=== PATIENT | male | born 1950 | race Caucasian/White ===

== ENCOUNTER → 2017-01-18 | Outpatient (CLI) | payer OTHER ==
[~2017-01-18] VITALS: Ht 198.1 cm; Wt 124.5 kg
[~2017-01-18] MED LIST: ACET-24 PO; ASPEC325 PO; ASPI81TA21 PO; ATOR-24 PO; CARV25TA PO; CRG25 PO; GABA1CAP PO; HYDR25TA4 PO; LEVO200T6 PO; LISI-725 PO; LISI20TA3 PO; MELO7.5T5 PO; MISC1TAB PO; POTA10TA PO; RXC5 PO; [UNRECOGNIZED DRUG - CODE] PO
[2017-01-18 12:32] VITALS: BP_SYST 148; BP_SYST 162; BP_DIAS 87; BP_DIAS 88; PULSE 33; PULSE 34; PULSE 43; Ht 198.1 cm; Wt 124.5 kg
== END | disposition home or self-care (01) ==
LOC: C.NEUR 11:55
PROVIDERS: ATTEND Internal Medicine Pulmonary Disease
DX: G47.33 Obstructive sleep apnea (adult) (pediatric) (principal); I44.0 Atrioventricular block, first degree; I49.3 Ventricular premature depolarization

== ENCOUNTER → 2017-02-01 | Outpatient (CLI) | payer OTHER ==
[2017-02-01 12:49] LABS: BASO % 0.2 %; BASO ABS # 0.02 K/uL (0-0.2); COMPLETE YES; EOS % 0.9 %; HEMATOCRIT 47.3 % (42-52); IG% 0.1 %; LYMPH % 24.8 %; LYMPH ABS # 2.31 K/uL (1.2-3.4); MEAN CORPUSCULAR HEMOGLOBIN 32.3 pg (25-34); MEAN CORPUSCULAR HGB CONC 35.5 g/dl (32-36); MEAN PLATELET VOLUME 10.5 fL (7.4-10.4); MONO % 8.8 %; NEUT % 65.2 %; PLATELET COUNT 117 K/uL (130-400)
[2017-02-01 14:58] LABS: ALT/SGPT 36 U/L (12-78); AST/SGOT 22 U/L (15-37); BLOOD UREA NITROGEN 22 mg/dl (7-18); BUN/CREATININE RATIO 15.6 (10-20); CALCIUM 8.7 mg/dl (8.5-10.1); CARBON DIOXIDE 31 mmol/L (21-32); CHLORIDE 104 mmol/L (98-107); GLUCOSE 82 mg/dl (70-99); MAGNESIUM 2.2 mg/dl (1.8-2.4); POTASSIUM 3.8 mmol/L (3.5-5.1); SODIUM 142 mmol/L (136-145)
[2017-02-01 15:03] LABS: ALB/GLOB RATIO 1.5 (0.9-2); ALKALINE PHOSPHATASE 79 U/L (45-117); CHOLESTEROL 82 mg/dl (0-200); CHOLESTEROL/HDL RATIO 2.9; HDL CHOLESTEROL 28 mg/dl; TRIGLYCERIDES 163 mg/dl (0-150); VERY LOW DENSITY LIPOPROT CALC 33 mg/dl
== END | disposition home or self-care (01) ==
LOC: C.LABSPEC 12:25
PROVIDERS: ATTEND Internal Medicine
DX: E78.5 Hyperlipidemia, unspecified (principal); I10 Essential (primary) hypertension; I47.0 Re-entry ventricular arrhythmia

== ENCOUNTER → 2017-03-21 | Outpatient (CLI) | payer OTHER ==
[~2017-03-21] MED LIST changes: -ACET-24 PO; -ASPEC325 PO; -CARV25TA PO; -HYDR25TA4 PO; -LEVO200T6 PO; -MELO7.5T5 PO; -MISC1TAB PO; -POTA10TA PO; -RXC5 PO
--- NOTE | 2017-03-21 14:35 | Discharge Instructions ---
Discharge Instructions Procedure Procedure Date: Mar 21, 2017. Reason for visit: L Hip Djd. Discharge Discharge Date: Mar 21, 2017. Discharge Diagnosis: Left hip pain. Status post left hip steroid injection. Instructions Activity Recommendations: No limitations Return to School/Work: no limitations Recommended Home Diet: No Limitations Allergies Coded Allergies: Morphine (Verified Adverse Reaction, Unknown, RASH, PER PT, CAN TOLERATE VICODIN, 10/25/11) info from 's H&P [facility] Recommendations: Call your doctor if: * Temperature above 101 degrees * Pain not relieved by pain medicine ordered * There is increased drainage or redness from any incision * You have any unanswered questions or concerns. Your Doctors Instructions noted above were prepared by provider Baron Mejia. Patient Signature Section: Patient Instructions Signature Page Rico [place] Patient (or Guardian) Signature/Date: I have read and understand the instructions given to me by my caregivers. Caregiver/RN/Doctor Signature/Date: The above-named patient and/or guardian has received patient instructions on this date. + Original Patient Signature Page (only) stays with chart. Please make copy for patient.
--- NOTE | 2017-03-21 14:52 | DIAGNOSTIC IMAGING REPORT ---
FLUOROSCOPIC GUIDED LEFT HIP STEROID INJECTION FLUOROSCOPY TIME: 19 seconds HISTORY: Left hip pain.. PROCEDURE: After obtaining written informed consent, the patient was placed supine on the fluoroscopy table. A suitable site for needle insertion was marked using fluoroscopic guidance. The left hip was prepped and draped in the usual sterile fashion. 1% lidocaine was used for skin, subcutaneous and deep soft tissue anesthesia. Under intermittent fluoroscopic guidance, a 22 gauge x 3.5 inch spinal needle was inserted into the left hip joint. 2 cc of Optiray 300 was injected to confirm the intra-articular location. This is followed by a mixture of 4cc of 0.5% bupivacaine and 2 cc of betamethasone at the request of the referring physician. The needle was then removed. There were no apparent complications. IMPRESSION: Fluoroscopic-guided left hip steroid injection without immediate complication. Electronically signed by: Rangel Mejia 03/21/2017 2:51 PM Dictated Date/Time: 03/21/2017 2:49 PM
== END | disposition home or self-care (01) ==
LOC: C.RADBC 12:45
PROVIDERS: ATTEND Orthopaedic Surgery
DX: M16.12 Unilateral primary osteoarthritis, left hip (principal)

== ENCOUNTER → 2017-03-29 | Outpatient (CLI) | payer OTHER ==
[2017-03-29 13:09] LABS: THYROID STIMULATING HORMONE 0.271 uIu/ml (0.300-4.500)
== END | disposition home or self-care (01) ==
LOC: C.LAB 11:31
PROVIDERS: ATTEND Internal Medicine Endocrinology, Diabetes & Metabolism
DX: E89.0 Postprocedural hypothyroidism (principal)

== ENCOUNTER 2017-11-14 18:10 | Observation (INO) | payer OTHER ==
[~2017-11-14] VITALS: Ht 198.1 cm; Wt 126.6 kg
[~2017-11-14 18:10] MED LIST changes: +ACET-24 PO; +ASPEC325 PO; -ASPI81TA21 PO; +CARV25TA PO; -CRG25 PO; +GABA100C13 PO; -GABA1CAP PO; +HYDR25TA4 PO; +LEVO200T6 PO; -LISI-725 PO; +MELO7.5T5 PO; +MISC1TAB PO; +POTA10TA PO; +RXC5 PO; -[UNRECOGNIZED DRUG - CODE] PO
[2017-11-14] MEDS ORDERED: ASPIRIN 81 MG CHEW PO STA (18:29)
[2017-11-14 18:46] LABS: BASO % 0.3 %; BASO ABS # 0.02 K/uL (0-0.2); EOS % 1.1 %; EOS ABS # 0.07 K/uL (0-0.5); HEMATOCRIT 45.4 % (42-52); HEMOGLOBIN 16.7 g/dL (14.0-18.0); IG# 0.01 K/uL (0.00-0.02); LYMPH % 30.4 %; MEAN CELL VOLUME 88.3 fL (80-100); MEAN CORPUSCULAR HEMOGLOBIN 32.5 pg (25-34); MEAN CORPUSCULAR HGB CONC 36.8 g/dl (32-36); MONO % 11.9 %; MONO ABS # 0.78 K/uL (0.11-0.59); NEUT % 56.1 %; PLATELET COUNT 110 K/uL (130-400); RED CELL DISTRIBUTION WIDTH CV 12.8 % (11.5-14.5); WHITE BLOOD COUNT 6.58 K/uL (4.8-10.8)
--- NOTE | 2017-11-14 18:46 | DIAGNOSTIC IMAGING REPORT ---
CHEST ONE VIEW PORTABLE CLINICAL HISTORY: Chest Pain dyspnea COMPARISON STUDY: 06/28/2017 FINDINGS: Moderate cardiomegaly. Diaphragms are smooth. Lungs are considered clear. IMPRESSION: Moderate cardiomegaly. Otherwise negative study. The above report was generated using voice recognition software. It may contain grammatical, syntax or spelling errors. Electronically signed by: Venu Amor M.D. 11/14/2017 6:45 PM Dictated Date/Time: 11/14/2017 6:44 PM
[2017-11-14] MEDS: NITROGLYCERIN 0.4 MG SL PER TAB CHARGE SL PRN ×3 (18:47→19:30)
[2017-11-14 19:06] LABS: BLOOD UREA NITROGEN 30 mg/dl (7-18); CREATININE 1.43 mg/dl (0.60-1.40); GLUCOSE 88 mg/dl (70-99)
[2017-11-14 19:07] LABS: CALCIUM 8.9 mg/dl (8.5-10.1); CARBON DIOXIDE 28 mmol/L (21-32); POTASSIUM 3.4 mmol/L (3.5-5.1); SODIUM 139 mmol/L (136-145)
[2017-11-14] MEDS ORDERED: ASPI81TA28 PO (19:07)
[2017-11-14 19:11] LABS: CKMB 7.2 ng/ml (0.5-3.6)
[2017-11-14] MEDS ORDERED: CHOL1000 PO (19:13)
--- NOTE | 2017-11-14 20:42 | DIAGNOSTIC IMAGING REPORT ---
HEAD WITHOUT CONTRAST (CT) CT DOSE: 729.78 mGycm HISTORY: Hypertension headache TECHNIQUE: Multiaxial CT images of the head were performed without the use of intravenous contrast. A dose lowering technique was utilized adhering to the principles of ALARA. Comparison: 11/04/2011 Findings: The paranasal sinuses and mastoid air cells are clear. The calvarium and skull base are intact. The ventricles and sulci are within normal limits. There is no mass, hematoma, midline shift, or acute infarct. Impression: No acute intracranial abnormality. The above report was generated using voice recognition software. It may contain grammatical, syntax or spelling errors. Electronically signed by: Venu Amor M.D. 11/14/2017 8:40 PM Dictated Date/Time: 11/14/2017 8:39 PM
[2017-11-14] MEDS ORDERED: CARVEDILOL 25 MG TAB PO STA (21:41)
[2017-11-14] MEDS ORDERED: ALUMINUM/MAGNESIUM/SIMETH (MAALOX MAX) 30 ML UDC PO PRN (21:45)
[2017-11-14] MEDS ORDERED: NITROGLYCERIN 0.4 MG SL PER TAB CHARGE SL PRN (21:45)
[2017-11-14] MEDS ORDERED: ONDANSETRON INJ 2 MG/ML 2 ML VIAL IV PRN (21:45)
[2017-11-14] MEDS ORDERED: ACETAMINOPHEN 325 MG TAB PO PRN (21:45)
[2017-11-14] MEDS ORDERED: POTASSIUM CHLORIDE 10 MEQ TABCR PO STA (21:49)
[2017-11-14] MEDS ORDERED: HydrALAZINE HCL 20 MG/ML VIAL IV. PRN (22:30)
--- NOTE | 2017-11-14 22:33 | History and Physical ---
History & Physical Date & Time of Service: Nov 14, 2017 at 22:02 Chief Complaint: Chest Pain,Elevated Bp Primary Care Physician: Jose Palacios M.D. History of Present Illness Source: patient, hospital records Patient is a 67 year old male with a past medical history of HTN, Hip replacement surgery, Thyroid cancer, and hyperlipidemia that presents with chest pain. At 4pm the patient began to have left sided chest pressure that came on suddenly while he was at home resting and did not radiate, did not change with movement or breathing, not worse with ambulation, and did not change in character, and denies any . At 6pm he called EMT friends who told the patient to come to the emergency department. The patient states he has been having frequent PACs for which he follows with Dr Avelar and has a second opinion at [facility] who felt he is not a candidate for an ablation at this time. He is scheduled to have an ECHO and Holter monitor later this month. Patient was given nitro paste on admission which made his chest pain resolve. At this time denies any chest pain, shortness of breath, palpitations, back pain, abdominal pain, fever, or chills. Family History No pertinent family history Social History Smoking Status: Never Smoker Smokeless Tobacco Use: No Alcohol Use: none Drug Use: none Marital Status: Housing status: lives with family Immunizations History of Influenza Vaccine: No Influenza Vaccine Date: Jul 25, 2012 History of Tetanus Vaccine?: Yes History of Pneumococcal: No History of Hepatitis B Vaccine: No Allergies Coded Allergies: Morphine (Verified Allergy, Unknown, RASH, PER PT, CAN TOLERATE VICODIN, 07/19/17) info from 's H&P Home Medications Scheduled Aspirin (Aspirin Ec), 81 MG PO DAILY Atorvastatin (Lipitor), 40 MG PO HS Carvedilol (Coreg), 25 MG PO BID Cholecalciferol (Vitamin D3), Unknown Dose PO DAILY Gabapentin (Neurontin), 200 MG PO TID Hydrochlorothiazide (Hctz), 25 MG PO QAM Levothyroxine Sodium (Levothyroxine Sodium), 1 TAB PO 5XWK Lisinopril (Prinivil), 20 MG PO DAILY Misc Natural Products (Flex-A-Min Double Strengt), 2 TAB PO QAM Potassium Chloride (K-Tabs), 10 MEQ PO UD Review of Systems Constitutional: No fever, No chills, No weight loss, No fatigue Respiratory: No cough, No sputum, No wheezing, No shortness of breath Cardiovascular: No chest pain, No edema, No palpitations Abdomen: No pain, No nausea, No vomiting, No diarrhea, No constipation Physical Exam Vital Signs Date Time Temp Pulse Resp B/P (MAP) Pulse Ox O2 Delivery O2 Flow Rate FiO2 11/14/17 20:04 143/103 11/14/17 20:00 62 20 11/14/17 19:33 114/90 11/14/17 19:30 86 21 94 Room Air 11/14/17 19:03 153/75 11/14/17 19:00 64 20 11/14/17 18:47 96 Room Air 11/14/17 18:42 60 11/14/17 18:16 36.7 57 16 186/128 96 Room Air General Appearance: WD/WN, no apparent distress Head: normocephalic, atraumatic Eyes: normal inspection, sclerae normal Neck: supple, no carotid bruits Respiratory/Chest: chest non-tender, lungs clear, normal breath sounds Cardiovascular: regular rate, rhythm, no edema, no murmur Abdomen/GI: normal bowel sounds, non tender, soft Extremities/Musculoskelatal: normal inspection, no calf tenderness, no pedal edema Neurologic/Psych: alert, normal mood/affect, oriented x 3 Diagnostics Laboratory Results Results Past 24 Hours Test 11/14/17 18:35 11/14/17 21:46 Range/Units White Blood Count 6.58 4.8-10.8 K/uL Red Blood Count 5.14 4.7-6.1 M/uL Hemoglobin 16.7 14.0-18.0 g/dL Hematocrit 45.4 42-52 % Mean Corpuscular Volume 88.3 80-100 fL Mean Corpuscular Hemoglobin 32.5 25-34 pg Mean Corpuscular Hemoglobin Concent 36.8 32-36 g/dl Platelet Count 110 130-400 K/uL Mean Platelet Volume 10.0 7.4-10.4 fL Neutrophils (%) (Auto) 56.1 % Lymphocytes (%) (Auto) 30.4 % Monocytes (%) (Auto) 11.9 % Eosinophils (%) (Auto) 1.1 % Basophils (%) (Auto) 0.3 % Neutrophils # (Auto) 3.70 1.4-6.5 K/uL Lymphocytes # (Auto) 2.00 1.2-3.4 K/uL Monocytes # (Auto) 0.78 0.11-0.59 K/uL Eosinophils # (Auto) 0.07 0-0.5 K/uL Basophils # (Auto) 0.02 0-0.2 K/uL RDW Standard Deviation 41.0 36.4-46.3 fL RDW Coefficient of Variation 12.8 11.5-14.5 % Immature Granulocyte % (Auto) 0.2 % Immature Granulocyte # (Auto) 0.01 0.00-0.02 K/uL Sodium Level 139 136-145 mmol/L Potassium Level 3.4 3.5-5.1 mmol/L Chloride Level 103 98-107 mmol/L Carbon Dioxide Level 28 21-32 mmol/L Anion Gap 7.0 3-11 mmol/L Blood Urea Nitrogen 30 7-18 mg/dl Creatinine 1.43 0.60-1.40 mg/dl Est Creatinine Clear Calc Drug Dose 72.3 ml/min Estimated GFR () 58.7 Estimated GFR (Non- 50.7 BUN/Creatinine Ratio 21.1 10-20 Random Glucose 88 70-99 mg/dl Calcium Level 8.9 8.5-10.1 mg/dl Total Bilirubin 0.8 0.2-1 mg/dl Direct Bilirubin 0.2 0-0.2 mg/dl Aspartate Amino Transf (AST/SGOT) 25 15-37 U/L Alanine Aminotransferase (ALT/SGPT) 35 12-78 U/L Alkaline Phosphatase 80 45-117 U/L Total Creatine Kinase 399 39-308 U/L Creatine Kinase MB 7.2 0.5-3.6 ng/ml Creatine Kinase MB Ratio 1.8 0-3.0 Troponin I < 0.015 0-0.045 ng/ml Total Protein 7.0 6.4-8.2 gm/dl Albumin 4.0 3.4-5.0 gm/dl Lipase 246 73-393 U/L Impression Assessment and Plan Patient is a 67 year old male with a past medical history of HTN, CALLI, CKD, Hip replacement surgery, Thyroid cancer, and hyperlipidemia that presents with chest pain Chest Pain - EKG: Bigeminy, No ST changes - Troponin < 0.015 --> Repeat q6h x 3 - Nitro Paste --> SL NTG for CP ordered - Morning Echo ordered - Aspirin - Obs Telemetry Hypertension - Continue home Carvedilol, HCTZ, Lisinopril - Hydralazine 10mg IV PRN for SBP > 180 CKD Stage 3 with acute dehydration - Cr 1.43 / BUN 30 - NS @ 125 mls/hr - Daily BMP Hypokalemia - K+ of 3.4 - 40 mEq PO K, 20 mEq IV K - Evening Mag - Daily BMP HLD - Continue home Lipitor Chronic Pain - Continue home Gabapentin Hypothyroidism - Continue home Synthroid Arthritis - Discontinue home Meloxicam due to elevated Cr along with CKD CALLI - Home CPAP DVT - SCDs Code Status - Full Resuscitation Attending addendum: I have physically seen this patient, have supervised the medical residents activities, and agree with the H&P unless as otherwise noted. Assessment and Plan: Precordial chest pain-- The patient will be admitted to telemetry for serial cardiac enzymes, serial EKG's, cardiac rhythm monitoring and a 2-D echocardiogram with Dopplers. Aspirin 81 mg daily Nitropaste 1 inch to the anterior chest wall every 6 hours Hypertension/chronic kidney disease/hypokalemia-- Continue carvedilol and lisinopril Hold HCTZ for now, but resume upon discharge. Give potassium chloride 40 mEq orally Advised him to to discuss with Dr. Encarnacion before he resumes meloxicam prescribed by orthopedics. Advanced Directives Existing Advance Directive: No Existing Living Will: No Existing Power of Float Operator: No Resuscitation Status VTE Prophylaxis Will order VTE Prophylaxis: Yes Resident Tracking Resident Involvement: Resident Care Provided Care Provided: Adult Hospital Medicine
[2017-11-14 23:00] VITALS: BP 172/112; PULSE 85; TEMP 36.6; O2SAT 94; O2SAT 96; Ht 198.1 cm; Wt 126.6 kg
[2017-11-14] MEDS ORDERED: IV FLUIDS COMPLETED PRN (23:00)
--- NOTE | 2017-11-14 23:18 | EMERGENCY ROOM VISIT NOTE ---
History Report prepared by Homa: Jr Tong Under the Supervision of: Pro KrugerO. First contact with patient: 18:18 Chief Complaint: CHEST PAIN Stated Complaint: CHEST PAIN,ELEVATED BP History of Present Illness The patient is a 67 year old male with a history of PVC's who presents to the Emergency Room with complaints of persistent left-sided chest tightness that started around 2 and a half hours ago. He states that he has not felt right all day, almost as if he was having an "anxiety attack". The patient says that his tightness is a 2 out of 10 in severity. He notes that his blood pressure has been high today, and says that he does take blood pressure medication. He says that he has a mild headache, and adds that he has been burping a lot today. The patient denies any shortness of breath, palpitations, runny nose, notable cough , abdominal pain, jaw pain, or arm pain. He notes that he is scheduled to have an echo on December 02 due to the PVC's. The patient says that he took 1, 80 mg Aspirin this morning. He notes that he had a heart catheterization in 2011 which was fine. The patient is not on a blood thinner. No true exacerbating or remitting factors. Source of History: patient, spouse/significant other Onset: 2 and a half hours ago Position: chest (left) Symptom Intensity: 2/10 Quality: other (tightness) Timing: other (persistent) Associated Symptoms: + headache (mild), No cough (or runny nose), No SOB, No abdominal pain Note: Burping a lot. High blood pressure. Denies palpitations, jaw pain, arm pain. Review of Systems See HPI for pertinent positives & negatives. A total of 10 systems reviewed and were otherwise negative. Past Medical & Surgical Medical Problems: (1) Chest pain (2) HTN (hypertension) (3) Left Hip DJD Family History No pertinent family history Social History Smoking Status: Never Smoker Marital Status: Housing Status: lives with family Occupation Status: retired Current/Historical Medications Scheduled Aspirin (Aspirin Ec), 81 MG PO DAILY Atorvastatin (Lipitor), 40 MG PO HS Carvedilol (Coreg), 25 MG PO BID Cholecalciferol (Vitamin D3), Unknown Dose PO DAILY Gabapentin (Neurontin), 200 MG PO TID Hydrochlorothiazide (Hctz), 25 MG PO QAM Levothyroxine Sodium (Levothyroxine Sodium), 1 TAB PO 5XWK Lisinopril (Prinivil), 20 MG PO DAILY Meloxicam (Mobic), 7.5 MG PO QAM Misc Natural Products (Flex-A-Min Double Strengt), 2 TAB PO QAM Potassium Chloride (K-Tabs), 10 MEQ PO BID Allergies Coded Allergies: Morphine (Verified Allergy, Unknown, RASH, PER PT, CAN TOLERATE VICODIN, 07/19/17) info from 's H&P Physical Exam Vital Signs Date Time Temp Pulse Resp B/P (MAP) Pulse Ox O2 Delivery O2 Flow Rate FiO2 11/14/17 21:39 82 21 11/14/17 21:33 184/135 11/14/17 21:09 88 14 11/14/17 21:03 178/87 11/14/17 20:57 161/84 11/14/17 20:09 62 21 11/14/17 20:04 143/103 11/14/17 20:00 62 20 11/14/17 19:33 114/90 11/14/17 19:30 86 21 94 Room Air 11/14/17 19:03 153/75 11/14/17 19:00 64 20 11/14/17 18:47 96 Room Air 11/14/17 18:42 60 11/14/17 18:16 36.7 57 16 186/128 96 Room Air Physical Exam GENERAL: Sitting up in bed, disheveled, nontoxic. EYE EXAM: normal conjunctiva. OROPHARYNX: no exudate, no erythema, lips, buccal mucosa, and tongue normal and mucous membranes are moist NECK: supple, no nuchal rigidity, no adenopathy, non-tender LUNGS: Clear to auscultation. Normal chest wall mechanics HEART: no murmurs, S1 normal and S2 normal ABDOMEN: abdomen soft, non-tender, normo-active bowel sounds, no masses, no rebound or guarding. BACK: Back is symmetrical on inspection and there is no deformity, no midline tenderness, no CVA tenderness. SKIN: no rashes and no bruising UPPER EXTREMITIES: upper extremities are grossly normal. LOWER EXTREMITIES: Calves equal bilateral. NEURO EXAM: Normal sensorium, cranial nerves II-XII grossly intact, normal speech, no gross weakness of arms, no gross weakness of legs. Medical Decision & Procedures ER Provider Diagnostic Interpretation: Radiology results as stated below per my review and the radiologist's interpretation: CHEST ONE VIEW PORTABLE CLINICAL HISTORY: Chest Pain dyspnea COMPARISON STUDY: 06/28/2017 FINDINGS: Moderate cardiomegaly. Diaphragms are smooth. Lungs are considered clear. IMPRESSION: Moderate cardiomegaly. Otherwise negative study. The above report was generated using voice recognition software. It may contain grammatical, syntax or spelling errors. Electronically signed by: Venu Amor M.D. 11/14/2017 6:45 PM Dictated Date/Time: 11/14/2017 6:44 PM HEAD WITHOUT CONTRAST (CT) CT DOSE: 729.78 mGycm HISTORY: Hypertension headache TECHNIQUE: Multiaxial CT images of the head were performed without the use of intravenous contrast. A dose lowering technique was utilized adhering to the principles of ALARA. Comparison: 11/04/2011 Findings: The paranasal sinuses and mastoid air cells are clear. The calvarium and skull base are intact. The ventricles and sulci are within normal limits. There is no mass, hematoma, midline shift, or acute infarct. Impression: No acute intracranial abnormality. The above report was generated using voice recognition software. It may contain grammatical, syntax or spelling errors. Electronically signed by: Venu Amor M.D. 11/14/2017 8:40 PM Dictated Date/Time: 11/14/2017 8:39 PM Laboratory Results 11/14/17 18:35 Red Blood Count 5.14, Mean Corpuscular Volume 88.3, Mean Corpuscular Hemoglobin 32.5, Mean Corpuscular Hemoglobin Concent 36.8, Mean Platelet Volume 10.0, Neutrophils (%) (Auto) 56.1, Lymphocytes (%) (Auto) 30.4, Monocytes (%) (Auto) 11.9, Eosinophils (%) (Auto) 1.1, Basophils (%) (Auto) 0.3, Neutrophils # (Auto ) 3.70, Lymphocytes # (Auto) 2.00, Monocytes # (Auto) 0.78, Eosinophils # (Auto ) 0.07, Basophils # (Auto) 0.02 11/14/17 18:35 Test 11/14/17 18:35 White Blood Count 6.58 K/uL (4.8-10.8) Red Blood Count 5.14 M/uL (4.7-6.1) Hemoglobin 16.7 g/dL (14.0-18.0) Hematocrit 45.4 % (42-52) Mean Corpuscular Volume 88.3 fL (80-100) Mean Corpuscular Hemoglobin 32.5 pg (25-34) Mean Corpuscular Hemoglobin Concent 36.8 g/dl (32-36) Platelet Count 110 K/uL (130-400) Mean Platelet Volume 10.0 fL (7.4-10.4) Neutrophils (%) (Auto) 56.1 % Lymphocytes (%) (Auto) 30.4 % Monocytes (%) (Auto) 11.9 % Eosinophils (%) (Auto) 1.1 % Basophils (%) (Auto) 0.3 % Neutrophils # (Auto) 3.70 K/uL (1.4-6.5) Lymphocytes # (Auto) 2.00 K/uL (1.2-3.4) Monocytes # (Auto) 0.78 K/uL (0.11-0.59) Eosinophils # (Auto) 0.07 K/uL (0-0.5) Basophils # (Auto) 0.02 K/uL (0-0.2) RDW Standard Deviation 41.0 fL (36.4-46.3) RDW Coefficient of Variation 12.8 % (11.5-14.5) Immature Granulocyte % (Auto) 0.2 % Immature Granulocyte # (Auto) 0.01 K/uL (0.00-0.02) Anion Gap 7.0 mmol/L (3-11) Est Creatinine Clear Calc Drug Dose 72.3 ml/min Estimated GFR () 58.7 Estimated GFR (Non- 50.7 BUN/Creatinine Ratio 21.1 (10-20) Calcium Level 8.9 mg/dl (8.5-10.1) Magnesium Level 2.1 mg/dl (1.8-2.4) Total Bilirubin 0.8 mg/dl (0.2-1) Direct Bilirubin 0.2 mg/dl (0-0.2) Aspartate Amino Transf (AST/SGOT) 25 U/L (15-37) Alanine Aminotransferase (ALT/SGPT) 35 U/L (12-78) Alkaline Phosphatase 80 U/L (45-117) Total Creatine Kinase 399 U/L (39-308) Creatine Kinase MB 7.2 ng/ml (0.5-3.6) Creatine Kinase MB Ratio 1.8 (0-3.0) Troponin I < 0.015 ng/ml (0-0.045) Total Protein 7.0 gm/dl (6.4-8.2) Albumin 4.0 gm/dl (3.4-5.0) Lipase 246 U/L (73-393) Laboratory results per my review. Medications Administered Medications (Trade) Dose Ordered Sig/Luis Fernando Route Start Time Stop Time Status Last Admin Dose Admin Nitroglycerin (Nitrostat Tab) 0.4 mg Q5M PRN SL 11/14/17 18:30 11/14/17 22:53 DC 11/14/17 19:30 0.4 MG Aspirin (Aspirin Chew) 324 mg NOW STAT PO 11/14/17 18:29 11/14/17 18:31 DC 11/14/17 18:46 324 MG Carvedilol (Coreg Tab) 25 mg NOW STAT PO 11/14/17 21:41 11/14/17 21:42 DC 11/14/17 22:13 25 MG ECG Per My Interpretation Indication: chest pain Rate (beats per minute): 78 Rhythm: sinus rhythm Findings: PVC (multiple), left axis deviation Change: Repeat ECG: Sinus rhythm rate of 83 bpm, first degree AV block, PVC's present, left axis deviation. ED Course ED COURSE: Vital signs were reviewed and showed hypertensive situational vitals. The patients medical record was reviewed The above diagnostic studies were performed and reviewed. ED treatments and interventions as stated above. 0: The patient was evaluated in room B4B. A complete history and physical examination was performed. 1828: Ordered Aspirin Chew 324 mg PO. 1829: Ordered Nitrostat Tab 0.4 mg SL PRN. 2049: Upon reevaluation, the patient is completely asymptomatic.I discussed my findings with the patient and he understands and agrees with the treatment plan. Based on the patients age, coexisting illnesses, exam and lab findings the decision to treat as an inpatient was made. The patient remained stable while under my care. The patient will be evaluated for further management. 2100: I reviewed the patient's case with Dr. Mary Beth RAGLAND staff interpreter. He will evaluate the patient for further management. Medical Decision Differential diagnoses includes but is not limited to acute coronary syndrome, myocardial infarction, pericarditis, pulmonary embolus, aortic dissection, pneumonia, pneumothorax, musculoskeletal, shingles, esophageal. Patient is a 67-year-old male that presents to ER not feeling right in combination with a chest feeling tight. Upon presentation he was found to be very hypertensive. Previous cath in 2011 was negative. Patient does have a history of hypertension and hyperlipidemia. CBC and BMP was unremarkable. LFTs and bilirubin were normal. CK was slightly elevated. Lipase is normal. CT head was performed as he did have a headache as well was unremarkable. Chest x-ray unremarkable. EKG shows no acute findings. There is chest pain completely resolved with nitroglycerin. He was also given aspirin as he only took 1 baby aspirin at home. With his hypertension, age, risk factors and chest pain relieved with nitro felt was reasonable to observe him overnight. Medication Reconcilliation Current Medication List: was personally reviewed by me Blood Pressure Screening Patient's blood pressure: Elevated blood pressure Blood pressure disposition: Elevated BP felt to be situational Consults Time Called: 2054 Consulting Physician: Dr. Mary Beth RAGLAND staff interpreter Returned Call: [phone] I reviewed the patient's case with Dr. Mary Beth RAGLAND staff interpreter. He will evaluate the patient for further management. Impression Primary Impression: Precordial chest pain Additional Impression: HTN (hypertension) Scribe Attestation The scribe's documentation has been prepared under my direction and personally reviewed by me in its entirety. I confirm that the note above accurately reflects all work, treatment, procedures, and medical decision making performed by me. Departure Information Dispostion Being Evaluated By Hospitalist Referrals Jose Palacios M.D. (PCP) Patient Instructions My [facility] Problem Qualifiers Additional Impression: HTN (hypertension) Hypertension type: unspecified Qualified Codes: I10 - Essential (primary) hypertension
[2017-11-14] MEDS: SODIUM CHLORIDE 0.9% 1000ML 1,000 ML IV SCH (23:39)
[2017-11-14] MEDS: POTASSIUM CHLR 10 MEQ / WTR 10 MEQ in PREMIXED WATER 100 ML IV SCH (23:40)
[2017-11-15] MEDS: POTASSIUM CHLR 10 MEQ / WTR 10 MEQ in PREMIXED WATER 100 ML IV SCH (00:56)
[2017-11-15 01:00] VITALS: BP 132/85; PULSE 56
[2017-11-15 04:00] VITALS: BP 156/97; PULSE 75; TEMP 36.4; O2SAT 96
[2017-11-15] MEDS ORDERED: LEVOTHYROXINE 200 MCG TAB PO SCH (06:30)
[2017-11-15 07:42] LABS: CALCIUM 8.1 mg/dl (8.5-10.1); CREATININE 1.27 mg/dl (0.60-1.40); POTASSIUM 3.4 mmol/L (3.5-5.1)
[2017-11-15] MEDS: SODIUM CHLORIDE 0.9% 1000ML 1,000 ML IV SCH (07:54)
[2017-11-15 07:55] VITALS: BP 139/88; PULSE 57; TEMP 36.6; O2SAT 91
[2017-11-15] MEDS: GABAPENTIN 100 MG CAP PO SCH ×2 (07:55→14:03)
[2017-11-15] MEDS ORDERED: CARVEDILOL 25 MG TAB PO SCH (09:00)
[2017-11-15] MEDS ORDERED: HYDROCHLOROTHIAZIDE 25 MG TAB PO SCH (09:00)
[2017-11-15] MEDS ORDERED: LISINOPRIL 20 MG TAB PO SCH (09:00)
[2017-11-15] MEDS ORDERED: MELOXICAM 7.5 MG TAB PO SCH (09:00)
[2017-11-15] MEDS ORDERED: ASPIRIN 81 MG ECTAB PO SCH (09:00)
--- NOTE | 2017-11-15 09:54 | Cardiology Consultation ---
Cardiology Consultation Date of Consultation: Nov 15, 2017. Requesting Physician: Dr. Cervantes Reason for Consultation: CP Pt evaluation today including: conversation w/ patient, physical exam, lab review, review of studies, review of inpatient medication list, conversation w/ attending History of Present Illness This is a very pleasant 67-year-old gentleman who has a history of hypertension and known nonobstructive coronary artery disease (he had a catheterization in May 2011 when he developed nonsustained ventricular tachycardia during exercise, this demonstrated noncritical coronary artery disease however and included a 30% mid LAD stenosis). He has had long-standing premature ventricular beats, however is asymptomatic. On detailed questioning he does not have any symptoms of lightheadedness, dizziness or palpitations, he has been told that his heart rate is slow at times and irregular but has never been aware of any exercise limitation and is never had presyncope or syncope. He did exercise regularly including riding a bike with no difficulty, however more recently his activity has been limited due to his hip replacement. He does not have heart failure symptoms. Evaluation included a stress echo which was done on 04/15/2015, he exercised for 9 minutes achieving 72% of his predicted maximal heart rate (he was taking beta-blockade). The echocardiogram was negative for ischemia at 72%. He had no ventricular tachycardia identified during exercise. His baseline left ventricular function was normal. We scheduled a 24-hour Holter monitor to make sure that he did not have heart block or runs of ventricular tachycardia, this showed 30% premature ventricular beats including 1000 ventricular pairs and one 3 beat run of ventricular tachycardia. He was already taking 25 mg twice a day of carvedilol. Since he was asymptomatic and had no change in left ventricular function we elected to follow him on his current medical regimen. Holter monitoring done on May 18, 2017 showed sinus bradycardia predominantly with a maximum heart rate of 94 bpm, first-degree AV block but no significant bradycardia or high degree of AV block. He had frequent premature ventricular beats which comprised 26% of the recording, including 4 beats of nonsustained ventricular tachycardia. He was evaluated at [facility] for possible ablation, that evaluation is still underway with a plan (according to the patient) of watching his left ventricular function and his ectopy to see if ablation is necessary. He describes feeling poorly yesterday afternoon, it was somewhat nonspecific although part of it was a mild chest discomfort as well as a feeling in his head that bothered him. He noted that his blood pressure was quite elevated, he went to the fire house to get his blood pressure checked and they suggested he come to the emergency room which he did. During this time he had this mild left-sided chest discomfort which he believes was then relieved by 2 nitroglycerin. He thinks the duration of the discomfort was something like 2 hours. He was not short of breath, and he has not had palpitations (but he does not feel his palpitations). Since admission to the hospital he has had no further discomfort. He notes his blood pressure has been somewhat elevated recently, his lisinopril was decreased following hip surgery because his pressure was low after surgery. Past Medical/Surgical History (1) HTN (hypertension) (2) Left Hip DJD Frequent premature ventricular beats Coronary artery disease Family History No pertinent family history Social History Smoking Status: Never Smoker History of Alcohol Use: No Review of Systems Constitutional: No fever, No weight loss, No weakness Respiratory: No cough, No wheezing, No shortness of breath, No dyspnea on exertion Cardiac: + see HPI, + chest pain, No orthopnea, No PND, No edema, No palpitations Abdomen: No pain, No nausea, No vomiting, No diarrhea, No GI bleeding Male : No urinary frequency, No nocturia more than once/night, No slowing stream, No sexual dysfunction Neurologic: No paralysis, No weakness, No numbness/tingling, No balance problems Heme: No abnormal bleeding/bruising, No clotting problems Endo: No fatigue Skin: No problem reported All Other Systems: Reviewed and Negative Allergies Coded Allergies: Morphine (Verified Allergy, Unknown, RASH, PER PT, CAN TOLERATE VICODIN, 07/19/17) info from 's H&P Medications Current Inpatient Medications Medications (Trade) Dose Ordered Sig/Luis Fernando Route Start Time Stop Time Status Last Admin Dose Admin Acetaminophen (Tylenol Tab) 650 mg Q4H PRN PO 11/14/17 21:45 12/14/17 21:44 Al Hydrox/Mg Hydrox/Simethicone (Maalox Max Susp) 15 ml Q4H PRN PO 11/14/17 21:45 12/14/17 21:44 Ondansetron HCl (Zofran Inj) 4 mg Q6H PRN IV 11/14/17 21:45 12/14/17 21:44 Nitroglycerin (Nitrostat Tab) 0.4 mg UD PRN SL 11/14/17 21:45 12/14/17 21:44 Aspirin (Ecotrin Tab) 81 mg DAILY PO 11/15/17 09:00 12/15/17 08:59 11/15/17 07:55 81 MG Atorvastatin Calcium (Lipitor Tab) 40 mg HS PO 11/15/17 21:00 12/15/17 20:59 11/15/17 07:56 40 MG Carvedilol (Coreg Tab) 25 mg BID PO 11/15/17 09:00 12/15/17 08:59 11/15/17 07:55 25 MG Gabapentin (Neurontin Cap) 200 mg TID PO 11/15/17 09:00 12/15/17 08:59 11/15/17 07:55 200 MG Hydrochlorothiazide (Hydrochlorothiazide Tab) 25 mg QAM PO 11/15/17 09:00 12/15/17 08:59 11/15/17 07:54 25 MG Levothyroxine Sodium (Synthroid Tab) 200 mcg DAILYBB PO 11/15/17 06:30 12/15/17 06:59 11/15/17 05:40 200 MCG Lisinopril (Zestril Tab) 20 mg DAILY PO 11/15/17 09:00 12/15/17 08:59 11/15/17 07:55 20 MG Hydralazine HCl (HydrALAZINE INJ) 10 mg Q4H PRN IV. 11/14/17 22:30 12/14/17 22:29 11/14/17 23:40 10 MG Sodium Chloride 1,000 ml @ 125 mls/hr Q8H IV 11/14/17 22:30 12/14/17 22:29 11/15/17 07:54 125 MLS/HR Miscellaneous (Iv Fluids Completed) 1 ea PRN PRN N/A 11/14/17 23:00 11/14/18 22:59 Potassium Chloride (Klor-Con Tab) 20 meq NOW PO 11/15/17 09:30 12/15/17 09:29 UNV Physical Exam Vital Signs Past 12 Hours Date Time Temp Pulse Resp B/P (MAP) Pulse Ox O2 Delivery O2 Flow Rate FiO2 11/15/17 08:00 Room Air 11/15/17 07:55 36.6 57 16 139/88 (105) 91 Room Air 11/15/17 04:00 Room Air CPAP 11/15/17 04:00 36.4 75 16 156/97 (116) 96 CPAP 11/15/17 01:00 56 132/85 (101) 11/15/17 00:00 Room Air CPAP 11/14/17 23:00 94 Room Air 11/14/17 23:00 36.6 85 20 172/112 96 Room Air 11/14/17 23:00 36.6 85 20 172/112 (132) 94 Room Air 11/14/17 22:02 154/82 97 Room Air Constitutional: General Apperance: heathly-appearing Level of Distress: NAD Psychiatric: Mental Status: active & alert Head: normocephalic Eyes: EOM: EOMI ENMT: normal ENT inspection, hearing grossly normal Neck: supple, no masses Lungs: Respiratory effort: no dyspnea, good air movement Auscultation: breath sounds normal, no wheezing Cardiovascular: Heart Auscultation: RRR, no murmurs, no rubs, no gallops, bradycardia, pertinent finding (With frequent premature beats) Peripheral Pulses: Bruits: none appreciated Abdomen: Bowel Sounds: normal Inspection & Palpation: soft, no tenderness, guarding & rebound, no masses Musculoskeletal: normal strength (5/5 throughout) Extremities: no edema Neurologic: Cranial Nerves: grossly intact Sensation: grossly intact Data Laboratory Results: Last 24 Hours Test 11/14/17 18:35 11/15/17 00:19 11/15/17 06:36 White Blood Count 6.58 K/uL Red Blood Count 5.14 M/uL Hemoglobin 16.7 g/dL Hematocrit 45.4 % Mean Corpuscular Volume 88.3 fL Mean Corpuscular Hemoglobin 32.5 pg Mean Corpuscular Hemoglobin Concent 36.8 g/dl Platelet Count 110 K/uL Mean Platelet Volume 10.0 fL Neutrophils (%) (Auto) 56.1 % Lymphocytes (%) (Auto) 30.4 % Monocytes (%) (Auto) 11.9 % Eosinophils (%) (Auto) 1.1 % Basophils (%) (Auto) 0.3 % Neutrophils # (Auto) 3.70 K/uL Lymphocytes # (Auto) 2.00 K/uL Monocytes # (Auto) 0.78 K/uL Eosinophils # (Auto) 0.07 K/uL Basophils # (Auto) 0.02 K/uL RDW Standard Deviation 41.0 fL RDW Coefficient of Variation 12.8 % Immature Granulocyte % (Auto) 0.2 % Immature Granulocyte # (Auto) 0.01 K/uL Sodium Level 139 mmol/L 139 mmol/L Potassium Level 3.4 mmol/L 3.4 mmol/L Chloride Level 103 mmol/L 104 mmol/L Carbon Dioxide Level 28 mmol/L 29 mmol/L Anion Gap 7.0 mmol/L 6.0 mmol/L Blood Urea Nitrogen 30 mg/dl 23 mg/dl Creatinine 1.43 mg/dl 1.27 mg/dl Est Creatinine Clear Calc Drug Dose 72.3 ml/min 85.4 ml/min Estimated GFR () 58.7 67.8 Estimated GFR (Non- 50.7 58.5 BUN/Creatinine Ratio 21.1 18.4 Random Glucose 88 mg/dl 84 mg/dl Calcium Level 8.9 mg/dl 8.1 mg/dl Magnesium Level 2.1 mg/dl Total Bilirubin 0.8 mg/dl Direct Bilirubin 0.2 mg/dl Aspartate Amino Transf (AST/SGOT) 25 U/L Alanine Aminotransferase (ALT/SGPT) 35 U/L Alkaline Phosphatase 80 U/L Total Creatine Kinase 399 U/L Creatine Kinase MB 7.2 ng/ml Creatine Kinase MB Ratio 1.8 Troponin I < 0.015 ng/ml < 0.015 ng/ml < 0.015 ng/ml Total Protein 7.0 gm/dl Albumin 4.0 gm/dl Lipase 246 U/L Hepatitis C Antibody Screen NEG Hepatitis C Antibody NEG Imaging: No acute findings EKG: Sinus bradycardia with frequent premature ventricular beats, no acute changes Telemetry reviewed: Sinus rhythm and sinus bradycardia, frequent premature ventricular beats with some ventricular bigeminy Assessment & Plan 1. Chest discomfort: Although his cardiac enzymes have been negative and his electrocardiogram does not show changes his discomfort is little bit worrisome in view of his known nonobstructive coronary disease at catheterization in 2010. He has not had exertional symptoms so this may not be cardiac at all, however it was relieved with nitroglycerin. I think we should perform stress testing. We can arrange that for today. 2. Frequent premature ventricular beats: He has had evaluation at [facility] for possible ablation, however he was to be reevaluated with repeat Holter monitoring and echocardiography to see whether the rhythm continues and whether his left ventricular function has worsened. An echocardiogram was done today, he continues to have frequent beats although we cannot quantify them very well on telemetry monitoring. That would require a Holter monitor. For now would keep him on telemetry and maintain his current dose of beta blockade. 3. Coronary disease: He had coronary disease identified at catheterization 2010 , it was nonobstructive and I am not sure he has symptoms related to it. Onset now of chest discomfort is worrisome however, this may not be cardiac but it certainly could be. Enzymes have been negative and there are no electrocardiographic changes. 4. Hypertension: He has significant hypertension at times and his blood pressure is quite labile, although not low during his hospitalization. I do not see a particular pattern. As long as his blood pressures not significantly elevated today I would like to perform the stress test. We will probably have to adjust his blood pressure medications to control his blood pressure. Thank you for allowing me to participate in his care.
[2017-11-15] MEDS ORDERED: POTASSIUM CHLORIDE 20 MEQ TABCR PO ONE (10:00)
[2017-11-15 12:23] VITALS: BP 143/84; PULSE 59; O2SAT 93
--- NOTE | 2017-11-15 13:53 | Discharge Instructions ---
Discharge Instructions Date of Service Nov 15, 2017. Admission Reason for Admission: Chest Pain Discharge Discharge Diagnosis / Problem: Chest Pain Discharge Goals Goal(s): Decrease discomfort, Improve function, Increase independence, Improve disease control Activity Recommendations Activity Limitations: resume your previous activity Lifting Limitations: gradually increase as tolerated Exercise/Sports Limitations: none May Resume Sexual Activity: when tolerated Shower/Bathe: no limitations Driving or Machine Use: no limitations . Instructions / Follow-Up Instructions / Follow-Up You were admitted to [facility] with chest pain and diagnosed with noncardiac chest pain. Your chest pain may have due to indigestion and anxiety. During your stay here you were treated with supportive care, nitroglycerine paste, and were evaluated by cardiology.. Imaging studies which were completed include Echocardiogram which was normal. You also underwent a stress treadmill test without abnormalities. Your blood pressure trended downward during your admission here without needs for adjustment in medications. Medications: Continue taking your medications as prescribed. Your potassium supplement has been increased, continue this as directed: 20 meq in the morning, and 10 meq in the evening. Appointments: Follow up with PCP within 1 week. Follow up with cardiology within 1-2 weeks. Current Hospital Diet Patient's current hospital diet: AHA Diet (Heart Healthy), Renal Diet Discharge Diet Recommended Diet: AHA Diet (Heart Healthy), Renal Diet Pending Studies Studies pending at discharge: no Medical Emergencies . Who to Call and When: Medical Emergencies: If at any time you feel your situation is an emergency, please call 911 immediately. . Non-Emergent Contact Non-Emergency issues call your: Primary Care Provider, Fast Food Sales Assistant Call Non-Emergent contact if: you have a fever, your pain is not controlled, your pain is worsening, your pain is unusual for you, your pain is concerning you, you have any medication questions other concerns with your health. Call 911 or go directly to the Emergency Department if you experience any of the following: Chest pain, chest tightness, shortness of breath, abdominal pain , lightheadedness, dizziness, gastrointestinal bleeding, or have any other concerns regarding your health. . Past History Medical & Surgical History: (1) Hx of supraventricular tachycardia (2) CAD (coronary artery disease) (3) S/P cardiac cath (4) CALLI (obstructive sleep apnea) (5) HLD (hyperlipidemia) (6) Thyroid cancer (7) Chest pain (8) Left Hip DJD (9) HTN (hypertension) . "Provider Documentation" section prepared by Sarah Cervantes. . [facility] Monitoring Program Search Results: no issues identified
[2017-11-15] MEDS ORDERED: POTA10TA PO (13:54)
[2017-11-15 14:06] VITALS: BP 143/84; PULSE 59; TEMP 36.6; O2SAT 93
--- NOTE | 2017-11-15 14:31 | EXERCISE STRESS ECHO ---
*NOTICE TO RECEIVING CONSTITUTION PARTY AGENCY This information is strictly Confidential and protected under [place] law. [place] law prohibits you from making any further disclosure of this information unless further disclosure is expressly permitted by the written consent of the person to whom it pertains or is authorized by law. A general authorization for the release of medical or other information is not sufficient for this purpose. Hospital accepts no responsibility if the information is made available to any other person, INCLUDING THE PATIENT. Interpretation Summary * Name: CLARITA LLAMAS Study Date: 11/15/2017 10:44 AM BP: 141/94 mmHg * Patient Location: [facility]\S\N286\S\1 HR: 60 * : 1950 (M/d/yyyy) Gender: Male Height: 78 in * Age: 67 yrs Ethnicity: CA Weight: 279 lb * Ordering Physician: Sandra Cervantes * Referring Physician: Self, Referred * Performed By: Jacqueline Thomas RCS * * Reason For Study: CHEST PAIN * BSA: 2.6 m2 * -- Conclusions -- * 1. Normal stress echocardiogram at 8.1 METs and a peak heart rate of 64% predicted maximum. * 2. No exercise-induced chest pain. * 3. No EKG changes. * 4. Baseline echocardiogram notes normal left ventricular systolic function. Procedure Details * ECHOEX, CPT #04010 Left Ventricle * Resting wall motion: Normal. Stress wall motion: Appropriate increase in Left ventricular systolic function and decrease in cavity size. No stress induced segmental wall motion abnormalities. Stress Parameters * Normal baseline electrocardiogram. * Stress ECG: No ST changes. No arrhythmias. * The stress portion of this study was personally supervised by the undersigned interpreting physician. * Rest heart rate was '60' BPM. * Rest blood pressure was '141/94' * Maximum heart rate achieved was 99 bpm. * Maximum heart rate was 64 % of maximum age-predicted heart rate. * Maximum blood pressure was '141/94' * Total exercise time was '06:46' * Maximum exercise MET level achieved was '8.10' METS * Maximum treadmill speed was '3.40' miles per hour. * Maximum treadmill elevation was '14.00'% grade.
--- NOTE | 2017-11-15 16:20 | Discharge Summary ---
Discharge Summary Date of Service Nov 15, 2017. Discharge Summary Admission Date: Nov 14, 2017 at 21:46 Discharge Date: Nov 15, 2017 Discharge Disposition: Home Principal Diagnosis: Non cardiac Chest pain Problems/Secondary Diagnoses: Medical Problems: (1) CAD (coronary artery disease) (2) Chest pain (3) HLD (hyperlipidemia) (4) HTN (hypertension) (5) Hx of supraventricular tachycardia (6) Left Hip DJD (7) CALLI (obstructive sleep apnea) (8) Thyroid cancer Surgical Problems: (1) S/P cardiac cath Immunizations: Have You Had Influenza Vaccine: No Influenza Vaccine Date: Jul 25, 2012 History of Tetanus Vaccine?: Yes History of Pneumococcal: No History of Hepatitis B Vaccine: No Procedures: Echocardiogram, stress treadmill 11/15/17 * -- Conclusions -- * 1. Normal stress echocardiogram at 8.1 METs and a peak heart rate of 64% predicted maximum. * 2. No exercise-induced chest pain. * 3. No EKG changes. * 4. Baseline echocardiogram notes normal left ventricular systolic function. Consultations: Cardiology Medication Reconciliation Changed Medications: Potassium Chloride (K-Tabs) 10 Meq Tab 10 MEQ PO UD for 30 Days, #90 DOSE (Changed from: BID) Take 20 meq in the morning, and 10 merq in the evening. Continued Medications: Aspirin (Aspirin Ec) 81 Mg Tab 81 MG PO DAILY Atorvastatin (Lipitor) 40 Mg Tab 40 MG PO HS, 0 Refills Carvedilol (Coreg) 25 Mg Tab 25 MG PO BID, TAB Cholecalciferol (Vitamin D3) Unknown Strength Tab Unknown Dose PO DAILY Gabapentin (Neurontin) 100 Mg Cap 200 MG PO TID, CAP Hydrochlorothiazide (Hctz) 25 Mg Tab 25 MG PO QAM, TAB Levothyroxine Sodium (Levothyroxine Sodium) 200 Mcg Tab 1 TAB PO 5XWK, TAB 3 Refills TAKE TUESDAY THRU TUESDAY. Lisinopril (Prinivil) 20 Mg Tab 20 MG PO DAILY, TAB Misc Natural Products (Flex-A-Min Double Strengt) 1 Tab Tab 2 TAB PO QAM Discontinued Medications: Meloxicam (Mobic) 7.5 Mg Tab 7.5 MG PO QAM, TAB Discharge Exam The patient was seen and examined this morning. Pt reports doing well currently. He denies any substernal chest pain or pressure since last evening. Patient notes that one nitroglycerin tablet relieved chest pressure. He denies any lightheadedness or dizziness associated with this. He participates in exercise regularly including riding a bike with no difficulty, however more recently his activity has been limited due to his hip replacement in Jul 2017. He report hx of gaining 15 pounds in the past year. No alcohol use, no current tobacco use. Patient underwent echocardiogram this morning and a stress echo after 3 negative troponins which was also found to be normal. ROS: Constitutional: No fever, sweats or chills Eyes: No diplopia, no worsening or blurred vision ENT: normal hearing, no trouble swallowing Respiratory: No cough, sputum, dyspnea at rest or on exertion Cardiovascular: No chest pain, tightness or palpitations Abdomen: No pain, nausea, vomiting, diarrhea or constipation Musculoskeletal: No joint pain, calf pain, swelling Neurologic: No weakness, numbness/tingling, or balance problems Psychiatric: No anxiety or depression Skin: No rash or itch PE: General: awake, alert, no apparent distress, obese Head: Normocephalic, atraumatic ENT: PERRL, EOMI, no pharyngeal exudate, mucous membranes moist Chest: Clear to auscultation, on room air, no adventitious breath sounds, on room air Cardiac: Bradycardia, frequent PVCs, no murmur, no JVD, normal peripheral pulses , good capillary refill Abdominal: NABS x 4 quadrants, soft, nontender to palpation, no rebound, guarding or tenderness Extremities: Normal inspection, no peripheral edema or erythema, calfs nontender to palpation Psych: Normal mood and affect Neuro: AAO x 3, speech is clear, no peripheral sensory deficits Hospital Course Patient is a 67 year old male with a past medical history of HTN, CALLI, CKD, Hip replacement surgery, Thyroid cancer, and hyperlipidemia that presents with chest pain Chest Pain Frequent PVCs - EKG: Bigeminy, No ST changes -Nitropaste resolved patient's chest pressure -Cardiology consulted -Cardiac biomarkers were trended 3 and were negative. The patient underwent stress treadmill echocardiogram and was found to be normal. -2D echo completed - Aspirin daily - Pt has been to [facility] for possible ablation, however he was to be reevaluated with repeat Holter monitoring and echocardiography to see whether the rhythm continues and whether his left ventricular function has worsened. Pt has been given records to take with him if he chooses to seek second opinion at [place] CAD - S/p hx of cardiac cath in 2011- 30 % stenosis to the LAD- nonobstructive, no stent placed. - Enzymes have been negative and there are no EKG changes. Hypertension - Continue home Carvedilol, HCTZ, Lisinopril - Hydralazine 10mg IV PRN for SBP > 180 -administered once the ER. Patient blood pressure has improved this morning down into the 130s-140s systolically. This may be slightly elevated due to anxiety component as well. CKD Stage 3 with acute dehydration - Cr 1.27 - improved to baseline - NS @ 125 mls/hr during stay here. Hypokalemia - K+ of 3.4 - replaced during hospital stay. Home medications were increased to 20 mEq in the morning, 10 mEq at night - Daily BMP HLD - Continue home Lipitor Chronic Pain - Continue home Gabapentin Hypothyroidism - Continue home Synthroid Arthritis - Discontinue home Meloxicam due to elevated Cr along with CKD CALLI - Home CPAP DVT- SCDs Code Status - Full Resuscitation Disposition: Patient from home, discharged home today. Total Time Spent: Greater than 30 minutes This includes examination of the patient, discharge planning, medication reconciliation, and communication with other providers. Discharge Instructions Please refer to the electronic Patient Visit Report (Discharge Instructions) for additional information. Follow-Up Follow up with PCP within 1 week. Follow up with cardiology within 1-2 weeks. Additional Copies To Jose Palacios M.D. Reviewed: Pt Seen/Exam by Me History Pt is doing well. No further chest pain. No SOB. Tolerating PO without issue. Agree with HPI/ROS as noted by PA General Appearance: WD/WN, no apparent distress Eye Exam: bilateral eye normal inspection, bilateral eye other (sclera WNL) Respiratory: normal breath sounds, no respiratory distress Cardiovascular: normal peripheral pulses, regular rate, rhythm Gastrointestinal: non tender, soft Extremities: non-tender, no pedal edema Neurologic/Psychiatric: alert, normal mood/affect, oriented x 3 Skin Characteristics: normal color, warm/dry Assessment/Plan Agree with plan as outlined above Chest pain: trops neg Stress test neg Continue outpt workup HypoK: advised to start 20meq in AM with 10meq in PM (increased from 10meq BID) D/c mobic if hip pain is no longer an issue s/p OR intervention
[2017-11-15] MEDS ORDERED: ATORVASTATIN 40 MG TAB PO SCH (21:00)
== END 2017-11-15 14:40 | disposition home or self-care (01) ==
LOC: C.EDB 18:12 → C.MED 21:46 → ENRESERV 22:00
PROVIDERS: ADMIT Student in an Organized Health Care Education/Training Program; ATTEND Family Medicine
DX: R07.89 Other chest pain (principal); I25.10 Atherosclerotic heart disease of native coronary artery without angina pectoris; E78.5 Hyperlipidemia, unspecified; I12.9 Hypertensive chronic kidney disease with stage 1 through stage 4 chronic kidney disease, or unspecified chronic kidney disease; N18.3 Chronic kidney disease, stage 3 (moderate); E87.6 Hypokalemia; E86.0 Dehydration; G47.33 Obstructive sleep apnea (adult) (pediatric); M16.12 Unilateral primary osteoarthritis, left hip; Z85.850 Personal history of malignant neoplasm of thyroid; Z79.82 Long term (current) use of aspirin; Z88.5 Allergy status to narcotic agent

== ENCOUNTER → 2017-12-20 | Outpatient (CLI) | payer OTHER ==
[~2017-12-20] MED LIST changes: -ACET-24 PO; -ASPEC325 PO; +ASPI81TA28 PO; +CHOL1000 PO; -MELO7.5T5 PO; -RXC5 PO
[2017-12-20 14:40] LABS: BLOOD UREA NITROGEN 24 mg/dl (7-18); CALCIUM 8.9 mg/dl (8.5-10.1); CARBON DIOXIDE 30 mmol/L (21-32); CHOLESTEROL 85 mg/dl (0-200); GLUCOSE 90 mg/dl (70-99); POTASSIUM 3.4 mmol/L (3.5-5.1); SODIUM 137 mmol/L (136-145)
[2017-12-20 14:51] LABS: LDL CHOLESTEROL (DIRECT) 55 mg/dl
== END | disposition home or self-care (01) ==
LOC: C.LABSPEC 12:34
PROVIDERS: ATTEND Internal Medicine
DX: Z00.00 Encounter for general adult medical examination without abnormal findings (principal); E78.5 Hyperlipidemia, unspecified; I10 Essential (primary) hypertension; E03.9 Hypothyroidism, unspecified

== ENCOUNTER → 2018-01-31 | Outpatient (CLI) | payer OTHER ==
[~2018-01-31] VITALS: Ht 198.1 cm; Wt 124.8 kg
[2018-01-31 16:03] VITALS: BP 128/85; PULSE 67; Ht 198.1 cm; Wt 124.8 kg
== END | disposition home or self-care (01) ==
LOC: C.NEUR 15:35
PROVIDERS: ATTEND Internal Medicine Pulmonary Disease
DX: G47.33 Obstructive sleep apnea (adult) (pediatric) (principal); R53.83 Other fatigue

== ENCOUNTER 2020-04-26 17:20 | Inpatient (IN) ==
[2020-04-26] MEDS ORDERED: SODIUM CHLORIDE 0.9% 1000ML 1,000 ML IV SCH (17:45)
[2020-04-26] MEDS ORDERED: ACETAMINOPHEN 500 MG TAB PO STA (17:47)
--- NOTE | 2020-04-26 17:47 | Emergency Department Note ---
Impression & Plan Sepsis, Acute dehydration, LA (acute kidney injury), Hypocalcemia ED Provider Note NAME: CLARITA LLAMAS AGE: 70 SEX: M : 1950 ARRIVES VIA: Walk-In INFORMANT: Patient, ED PROVIDER(S): Krunal Oshea MD Chief Complaint: Not feeling well, weakness HPI: Patient states that his symptom began yesterday morning. The patient is stated he felt somewhat weak and fatigued. The patient went to the [facility] to swim but was not able to complete his exercise regimen because of his feelings of fatigue. Patient denies any shortness of breath or chest pains. The patient has had some associated feelings of fever and warmth but denies chills, chest pains, shortness of breath, nausea, or vomiting. Patient denies any rashes or tick bites. The patient states that he has had slight decreased p.o. intake over the last day. The patient states that his symptoms are gotten progressively worse and not better and has not tried anything at home to ameliorate his symptoms. Patient does state he has been able to take all of his current medications. Patient states that he was seen yesterday at Dr. Byron Rodriguez where he had a urinalysis that was completed which showed some hematuria but no infection. This apparently was pending a culture results. Patient denies any lower extremity swelling, symptoms, hematuria, and has had a recent bowel movement. ROS: See HPI for pertinent positives and negatives. A total of 10 systems were reviewed and otherwise negative. Past medical history: See below Surgical history: See below Social history: See below Physical Exam: GENERAL: Mildly ill in appearance, wearing a mask and glasses. EYE EXAM: Normal conjunctiva. PERRL, no anisocoria and EOM's grossly intact w/o pain. NECK: Supple, no nuchal rigidity, no adenopathy, non-tender. No signs of meningismus. LUNGS: Clear to auscultation. Normal chest wall mechanics. HEART: NSR, no MRG. ABDOMEN: Abdomen soft, non-tender, normo-active bowel sounds, no masses, no rebound or guarding. BACK: No CVA TTP. SKIN: No rashes and no bruising. UPPER EXTREMITIES: Upper extremities are grossly normal. LOWER EXTREMITIES: Grossly normal, no edema. NEURO EXAM: A&O x3, cranial nerves II-XII grossly intact, normal speech, moves all 4 extremities on command w/o issue. Differential diagnoses: Sepsis, UTI, pneumonia, metabolic, electrolyte abnormalities, cardiac sources, intracerebral event, toxicologic, neurologic, as well as other pathologies. Course: Patient was seen and evaluated the bedside. Full history physical exam was performed. EKG: Indication: Weakness Sinus rhythm first-degree block, rate of 73, borderline QRS, normal axis, no obvious ST changes Imaging Studies: Radiology results as stated below per my review in the radiologist's interpretation: XR chest 1V portable CLINICAL HISTORY: SEPSIS COMPARISON STUDY: 11/14/2017 FINDINGS: The heart is enlarged. There is no focal pulmonary consolidation. There is slight interstitial prominence similar to the prior study. There is no overt failure. There are no significant pleural effusions[ IMPRESSION: Persistent cardiomegaly. No evidence of focal pulmonary consolidation ACT 112: Negative or not required by law. Electronically signed by: Julián Awad M.D. 04/26/2020 6:45 PM Dictated: 04/26/201843 Transcribed: 04/26/201843 Cardiac monitoring: An order was placed for continuous cardiac monitoring. The monitor shows a rate of 96 with sinus rhythm. MDM: Patient did present with concern for fever and weakness. Blood work was obtained along with blood urine cultures and the patient was given IV fluids. I did review the patient's urine culture that was completed from yesterday. This was negative. Patient does have a negative COVID test. Patient has normal white count H&H. Mild thrombocytopenia noted. The patient does have mild LA given creatinine is 2.3. On reassessment the patient was feeling mildly improved and his hypotension also improved. Lactate 2.5 the patient did receive IV fluids. The patient was ordered an additional 500 IV fluid. Bilirubin is slightly elevated but the patient does not complain of any abdominal pain. No other abnormalities in the patient's LFTs. Procalcitonin is 0.99. Lyme's is negative. I did speak the on-call hospitalist agreed to further evaluate treat the patient. Patient was admitted to medicine service. Past Med/Surg History Medical History Actinic keratosis BCC (basal cell carcinoma), abdomen Dysplastic nevus Hx of papillary thyroid carcinoma Hx of supraventricular tachycardia Surgical History S/P cardiac cath S/P surgery on nasal septum S/P thyroid surgery Social History Smoking Status: Never smoker Feels Safe at Home: Yes Allergies Allergies Allergy/AdvReac Type Severity Reaction Status Date / Time morphine Allergy Unknown RASH, PER Verified 04/26/20 18:54 PT, CAN TOLERATE VICODIN Opioids - Morphine Analogues Allergy Verified 04/26/20 18:54 Home Meds Home Medications Medication Instructions Recorded Confirmed aspirin 81 mg tablet,delayed 81 mg PO DAILY 06/27/19 04/26/20 release gabapentin 100 mg tablet 200 mg PO TID tab 06/27/19 04/26/20 glucos sul [id number] 2 cap PO DAILY 06/27/19 04/26/20 lisinopril 20 mg tablet 20 mg PO BID tab 06/27/19 04/26/20 potassium chloride 10 mEq 20 meq PO BID cap 06/27/19 04/26/20 capsule,extended release acetaminophen [Tylenol Extra 500 mg PO Q6H PRN 04/26/20 04/26/20 Strength] Previous Rx's Medication Instructions Recorded hydrochlorothiazide 25 mg tablet 25 mg PO DAILY #90 tab 06/28/19 carvedilol 25 mg tablet 25 mg PO BID #180 tab 07/02/19 atorvastatin 40 mg tablet 40 mg PO QPM #90 tab 02/01/20 levothyroxine 137 mcg tablet 137 mcg PO DAILY #90 tab 04/07/20 Results & Data (ED) Vital Signs Vital Signs - 24 hr 04/26/20 17:25 04/26/20 18:14 04/26/20 18:18 Temperature 37.8 C H Temperature Source Oral Pulse Rate 96 H Pulse Rate [Left Finger] 73 Pulse Rate from SpO2 Sensor Respiratory Rate 20 18 18 Respiratory Effort / Characteristics Non-Labored Respiratory Depth Normal Blood Pressure 82/54 L Blood Pressure [Left Arm] 99/64 L Blood Pressure Mean 63 Blood Pressure Mean [Left Arm] 75 Pulse Oximetry 92 92 91 Oxygen Delivery Method Room Air Room Air Nasal Cannula Sepsis Recent Fever Within 48 Hours No Sepsis New/Unexplained Change in Mental Status No Sepsis Action Taken by Nursing No Action Required Oxygen Flow Rate - Titration 2 Pulse Oximetry Post Tiitration 93 08/15/20 18:40 04/26/20 18:50 04/26/20 19:00 Temperature Temperature Source Pulse Rate 90 88 88 Pulse Rate [Left Finger] Pulse Rate from SpO2 Sensor 80 88 88 Respiratory Rate 18 Respiratory Effort / Characteristics Respiratory Depth Blood Pressure 107/73 Blood Pressure [Left Arm] Blood Pressure Mean 83 Blood Pressure Mean [Left Arm] Pulse Oximetry 94 94 94 Oxygen Delivery Method Sepsis Recent Fever Within 48 Hours Sepsis New/Unexplained Change in Mental Status Sepsis Action Taken by Nursing Oxygen Flow Rate - Titration Pulse Oximetry Post Tiitration 04/26/20 19:01 Temperature Temperature Source Pulse Rate 88 Pulse Rate [Left Finger] Pulse Rate from SpO2 Sensor 88 Respiratory Rate 20 Respiratory Effort / Characteristics Respiratory Depth Blood Pressure Blood Pressure [Left Arm] Blood Pressure Mean Blood Pressure Mean [Left Arm] Pulse Oximetry 94 Oxygen Delivery Method Sepsis Recent Fever Within 48 Hours Sepsis New/Unexplained Change in Mental Status Sepsis Action Taken by Nursing Oxygen Flow Rate - Titration Pulse Oximetry Post Tiitration Home Medications Current Medication List: was personally reviewed by me Laboratory Data Attestation: I reviewed the patient's lab results. Result diagrams: 04/26/20 18:06 04/26/20 18:06 Lab Results 04/26/20 04/26/20 04/26/20 Range/Units 18:05 18:05 18:06 WBC 5.70 (4.8-10.8) K/uL RBC 5.17 (4.7-6.1) M/uL Hgb 16.4 (14.0-18.0) g/dL Hct 46.4 (42-52) % MCV 89.7 (80-100) fL MCH 31.7 (25-34) pg MCHC 35.3 (32-36) g/dL RDW Std Deviation 44.0 (36.4-46.3) fL RDW Coeff of Myles 13.3 (11.5-14.5) % Plt Count 80 L (130-400) K/uL MPV 9.7 (7.4-10.4) fL Immature Gran % (Auto) 0.4 % Neut % (Auto) 79.6 % Lymph % (Auto) 13.0 % Stephenson % (Auto) 6.8 % Eos % (Auto) 0.0 % Baso % (Auto) 0.2 % Neut # (Auto) 4.54 (1.4-6.5) K/uL Lymph # (Auto) 0.74 L (1.2-3.4) K/uL Stephenson # (Auto) 0.39 (0.11-0.59) K/uL Eos # (Auto) 0.00 (0-0.5) K/uL Baso # (Auto) 0.01 (0-0.2) K/uL Immature Gran # (Auto) 0.02 (0.00-0.02) K/uL Platelet Estimate Decreased L (Normal) PT (9.0-12.0) Seconds INR (0.9-1.1) APTT (21.0-31.0) Seconds PTT Ratio Sodium (136-145) mmol/L Potassium (3.5-5.1) mmol/L Chloride (98-107) mmol/L Carbon Dioxide (21-32) mmol/L Anion Gap (3-11) BUN (7-18) mg/dl Creatinine (0.6-1.4) mg/dl Est Cr Clr Drug Dosing ml/min Est GFR ( Amer) Est GFR (Non-Af Amer) BUN/Creatinine Ratio (10-20) Glucose (70-99) mg/dl Lactate (0.4-2.0) mmol/L Calcium (8.5-10.1) mg/dl Magnesium (1.8-2.4) mg/dl Total Bilirubin (0.2-1) mg/dl AST (15-37) U/L ALT (12-78) U/L Alkaline Phosphatase (45-117) U/L Troponin I (0-0.045) ng/ml Total Protein (6.4-8.2) gm/dl Albumin (3.4-5.0) gm/dl Globulin (2.5-4.0) gm/dl Albumin/Globulin Ratio (0.9-2) Procalcitonin (0-0.5) ng/ml Lyme Disease IgG Ab (Negative) Lyme Disease IgM Ab (Negative) COVID-19 Eval Order Covid19 Done at [facility] COVID-19 PCR NEGATIVE (Negative) 04/26/20 04/26/20 04/26/20 Range/Units 18:06 18:06 18:06 WBC (4.8-10.8) K/uL RBC (4.7-6.1) M/uL Hgb (14.0-18.0) g/dL Hct (42-52) % MCV (80-100) fL MCH (25-34) pg MCHC (32-36) g/dL RDW Std Deviation (36.4-46.3) fL RDW Coeff of Myles (11.5-14.5) % Plt Count (130-400) K/uL MPV (7.4-10.4) fL Immature Gran % (Auto) % Neut % (Auto) % Lymph % (Auto) % Stephenson % (Auto) % Eos % (Auto) % Baso % (Auto) % Neut # (Auto) (1.4-6.5) K/uL Lymph # (Auto) (1.2-3.4) K/uL Stephenson # (Auto) (0.11-0.59) K/uL Eos # (Auto) (0-0.5) K/uL Baso # (Auto) (0-0.2) K/uL Immature Gran # (Auto) (0.00-0.02) K/uL Platelet Estimate (Normal) PT 12.0 (9.0-12.0) Seconds INR 1.1 (0.9-1.1) APTT 29.6 (21.0-31.0) Seconds PTT Ratio 1.1 Sodium 135 L (136-145) mmol/L Potassium 4.0 (3.5-5.1) mmol/L Chloride 102 (98-107) mmol/L Carbon Dioxide 25 (21-32) mmol/L Anion Gap 8.0 (3-11) BUN 26 H (7-18) mg/dl Creatinine 2.30 H (0.6-1.4) mg/dl Est Cr Clr Drug Dosing 44.0 ml/min Est GFR ( Amer) 32.4 Est GFR (Non-Af Amer) 27.9 BUN/Creatinine Ratio 11.3 (10-20) Glucose 134 H (70-99) mg/dl Lactate 2.5 H* (0.4-2.0) mmol/L Calcium 8.2 L (8.5-10.1) mg/dl Magnesium 2.2 (1.8-2.4) mg/dl Total Bilirubin 1.2 H (0.2-1) mg/dl AST 25 (15-37) U/L ALT 30 (12-78) U/L Alkaline Phosphatase 68 (45-117) U/L Troponin I < 0.015 (0-0.045) ng/ml Total Protein 7.0 (6.4-8.2) gm/dl Albumin 3.5 (3.4-5.0) gm/dl Globulin 3.5 (2.5-4.0) gm/dl Albumin/Globulin Ratio 1.0 (0.9-2) Procalcitonin (0-0.5) ng/ml Lyme Disease IgG Ab (Negative) Lyme Disease IgM Ab (Negative) COVID-19 Eval Order COVID-19 PCR (Negative) 04/26/20 Range/Units 18:06 WBC (4.8-10.8) K/uL RBC (4.7-6.1) M/uL Hgb (14.0-18.0) g/dL Hct (42-52) % MCV (80-100) fL MCH (25-34) pg MCHC (32-36) g/dL RDW Std Deviation (36.4-46.3) fL RDW Coeff of Myles (11.5-14.5) % Plt Count (130-400) K/uL MPV (7.4-10.4) fL Immature Gran % (Auto) % Neut % (Auto) % Lymph % (Auto) % Stephenson % (Auto) % Eos % (Auto) % Baso % (Auto) % Neut # (Auto) (1.4-6.5) K/uL Lymph # (Auto) (1.2-3.4) K/uL Stephenson # (Auto) (0.11-0.59) K/uL Eos # (Auto) (0-0.5) K/uL Baso # (Auto) (0-0.2) K/uL Immature Gran # (Auto) (0.00-0.02) K/uL Platelet Estimate (Normal) PT (9.0-12.0) Seconds INR (0.9-1.1) APTT (21.0-31.0) Seconds PTT Ratio Sodium (136-145) mmol/L Potassium (3.5-5.1) mmol/L Chloride (98-107) mmol/L Carbon Dioxide (21-32) mmol/L Anion Gap (3-11) BUN (7-18) mg/dl Creatinine (0.6-1.4) mg/dl Est Cr Clr Drug Dosing ml/min Est GFR ( Amer) Est GFR (Non-Af Amer) BUN/Creatinine Ratio (10-20) Glucose (70-99) mg/dl Lactate (0.4-2.0) mmol/L Calcium (8.5-10.1) mg/dl Magnesium (1.8-2.4) mg/dl Total Bilirubin (0.2-1) mg/dl AST (15-37) U/L ALT (12-78) U/L Alkaline Phosphatase (45-117) U/L Troponin I (0-0.045) ng/ml Total Protein (6.4-8.2) gm/dl Albumin (3.4-5.0) gm/dl Globulin (2.5-4.0) gm/dl Albumin/Globulin Ratio (0.9-2) Procalcitonin 0.99 H (0-0.5) ng/ml Lyme Disease IgG Ab Negative (Negative) Lyme Disease IgM Ab Negative (Negative) COVID-19 Eval Order COVID-19 PCR (Negative) Administered Medications Discontinued Medications Acetaminophen (Acetaminophen 500 Mg Tab) 1,000 mg PO NOW STA Stop: 04/26/20 17:48 Last Admin: 04/26/20 18:10 Dose: 1,000 mg Documented by: [id number] Sodium Chloride (Nss 1000ml) 1,000 mls @ 999 mls/hr IV .[id number] GERI Stop: 04/26/20 18:40 Last Infusion: 04/26/20 19:13 Dose: 0 mls/hr Documented by: [id number] Admin: 04/26/20 18:11 Dose: 999 mls/hr Documented by: [id number] Sodium Chloride (Nss 1000ml) 500 mls @ 999 mls/hr IV .Q31M ONE Stop: 04/26/20 20:05 Last Admin: 04/26/20 19:47 Dose: 999 mls/hr Documented by: [id number] Discharge Plan Visit Data Chief Complaint: Illness Stated Complaint: MUSCLE ACHES, CHILLS, SWEATING, DIARRHEA ED Provider: Krunal Oshea Discharge Problem: Sepsis, Acute dehydration, LA (acute kidney injury), Hypocalcemia Forms Stand Alone Forms: [facility] Prescriptions Prescriptions: No Action aspirin [Adult Low Dose Aspirin] 81 mg tablet,delayed release (DR/EC) 81 mg PO DAILY RF: 0 gabapentin 100 mg tablet 200 mg PO TID RF: 0 glucos sul [id number] 2 cap PO DAILY RF: 0 lisinopril 20 mg tablet 20 mg PO BID RF: 0 potassium chloride 10 mEq capsule, extended release 20 meq PO BID RF: 0 hydrochlorothiazide 25 mg tablet 25 mg PO DAILY Qty: 90 RF: 3 carvedilol 25 mg tablet 25 mg PO BID Qty: 180 RF: 3 atorvastatin 40 mg tablet 40 mg PO QPM Qty: 90 RF: 3 levothyroxine 137 mcg tablet 137 mcg PO DAILY Qty: 90 RF: 3 acetaminophen [Tylenol Extra Strength] 500 mg Tablet 500 mg PO Q6H PRN (Reason: Fever Or Pain) RF: 0 Discharge Problem: Sepsis Qualifiers: Sepsis type: sepsis due to unspecified organism Sepsis acute organ dysfunction status: with acute organ dysfunction Severe sepsis acute organ dysfunction type: acute renal failure Acute renal failure type: unspecified Severe sepsis shock status: without septic shock Qualified Code(s): A41.9 - Sepsis, unspecified organism
[2020-04-26 18:37] LABS: INR 1.1 (0.9-1.1); Partial Thromboplastin Ratio 1.1; Partial Thromboplastin Time 29.6 Seconds (21.0-31.0)
[2020-04-26 18:39] LABS: Alanine Aminotransferase 30 U/L (12-78); Albumin Level 3.5 gm/dl (3.4-5.0); Aspartate Aminotransferase 25 U/L (15-37); BUN Creatinine Ratio 11.3 (10-20); Blood Urea Nitrogen 26 mg/dl (7-18); Calcium 8.2 mg/dl (8.5-10.1); Carbon Dioxide 25 mmol/L (21-32); Chloride 102 mmol/L (98-107); Est GFR (African American) 32.4; Est GFR (Non-African American) 27.9; Glucose 134 mg/dl (70-99); Magnesium 2.2 mg/dl (1.8-2.4); Sodium 135 mmol/L (136-145)
[2020-04-26 18:44] LABS: Alkaline Phosphatase 68 U/L (45-117); Bilirubin,Total 1.2 mg/dl (0.2-1); Globulin 3.5 gm/dl (2.5-4.0); Troponin I < 0.015 ng/ml (0-0.045)
--- NOTE | 2020-04-26 18:46 | XRay Report ---
XR chest 1V portable CLINICAL HISTORY: SEPSIS COMPARISON STUDY: 11/14/2017 FINDINGS: The heart is enlarged. There is no focal pulmonary consolidation. There is slight interstit ial prominence similar to the prior study. There is no overt failure. There are no significant pleura l effusions[ IMPRESSION: Persistent cardiomegaly. No evidence of focal pulmonary consolidation ACT 112: Negative or not required by law. Electronically signed by: Julián Awad M.D. 04/26/2020 6:45 PM
[2020-04-26 19:05] LABS: Basophils # (auto) 0.01 K/uL (0-0.2); Basophils % (auto) 0.2 %; Hematocrit (blood only) 46.4 % (42-52); Hemoglobin 16.4 g/dL (14.0-18.0); Immature Granulocytes # (auto) 0.02 K/uL (0.00-0.02); Immature Granulocytes % (auto) 0.4 %; Lymphocytes # (auto) 0.74 K/uL (1.2-3.4); Mean Corpuscular Hemoglobin 31.7 pg (25-34); Mean Corpuscular Hgb Conc 35.3 g/dL (32-36); Mean Corpuscular Volume 89.7 fL (80-100); Mean Platelet Volume 9.7 fL (7.4-10.4); Monocytes # (auto) 0.39 K/uL (0.11-0.59); Monocytes % (auto) 6.8 %; Neutrophils # (auto) 4.54 K/uL (1.4-6.5); Neutrophils % (auto) 79.6 %; Platelet Count 80 K/uL (130-400); Platelet Estimate Decreased (Normal); Procalcitonin 0.99 ng/ml (0-0.5); RDW Coefficient of Variation 13.3 % (11.5-14.5); Red Blood Count 5.17 M/uL (4.7-6.1)
[2020-04-26 19:14] LABS: Lyme Ab IgG w/WB Rflx Negative (Negative); Lyme Ab IgM w/WB Rflx Negative (Negative)
[2020-04-26] MEDS ORDERED: SODIUM CHLORIDE 0.9% 1000ML 500 ML IV ONE (19:35)
--- NOTE | 2020-04-26 21:19 | History & Physical Report ---
Date of Service April 26, 2020 Assessment & Plan (1) Febrile illness: Febrile illness/generalized weakness- Differential including: Prostatitis, viral syndrome with ITP, anaplasmosis, coronary issues and others. Empiric treatment with ceftriaxone 1 g IV daily and doxycycline 100 mg IV every 12 hours. Ordering peripheral smear to assess for inclusion bodies. Urinalysis and urine culture sensitivity pending, will follow Patient reports a known PSA of 6.6. Present on Admission?: Yes (2) Weakness generalized: See above Present on Admission?: Yes (3) Thrombocytopenia: Platelets decreased to 80 upon admission. Checking peripheral smear as noted. May be associated anaplasmosis, early sepsis, viral infection, antiplatelet agent aspirin, others. If platelets continue to drop tomorrow, could consider a trial of steroids for ITP, and depending upon interpretation of other studies. Present on Admission?: Yes (4) LA (acute kidney injury): Creatinine 2.30 upon admission, with range 1.27-1.56, and overall average 1.40. Holding lisinopril, HCTZ and potassium. Received 1.5 L NSS while in the ED, and will continue NSS at 80 mils per hour. Recheck laboratories in the a.m. Present on Admission?: Yes (5) CAD (coronary artery disease): CAD/hypertension/PVCs- The patient will be admitted to telemetry for serial cardiac enzymes, serial EKG's, cardiac rhythm monitoring Continue aspirin 81 mg daily, and carvedilol 25 mg p.o. twice daily. Hold lisinopril 20 mg p.o. twice daily, HCTZ 25 mg p.o. daily and potassium chloride 20 mEq p.o. twice daily for now due to acute kidney injury Present on Admission?: Yes (6) Premature ventricular contractions: Patient with history of nonsustained V. tach and PVCs. Patient was noted to be in asymptomatic bigeminy intermittently while in the ED. Present on Admission?: Yes (7) HTN (hypertension): See above Present on Admission?: Yes (8) HLD (hyperlipidemia): Continue atorvastatin 40 mg in the evening Present on Admission?: Yes (9) Hypothyroidism, postablative: Continue levothyroxine 137 mcg daily Present on Admission?: Yes History of Present Illness Chief Complaint: The patient presents to the emergency department with complaint of feeling generally weak and fatigued, being unable to complete his usual exercise regimen of swimming at the [facility], without chest pain or shortness of breath. Primary Care Provider: Jose Encarnacion MD The patient is a 70-year-old male with a past medical history including ASCVD, carotid artery plaque, first-degree AV block, post ablative hypothyroidism, idiopathic polyneuropathy, DJD of left hip, nonsustained V. tach, PVCs, sensorineural hearing loss of both ears, hypertension, CAD, hyperlipidemia and obstructive sleep apnea. He reports to the ED with complaint of generalized weakness and fatigue. He does note increased frequency of urination over the past 48 hours, without hematuria or dysuria. He usually is very physically active, swimming at the [facility] on a regular basis, and out walking as well. He does report decreased oral intake over the past 24 hours due to decreased appetite. Allergies Allergy/AdvReac Type Severity Reaction Status Date / Time morphine Allergy Unknown RASH, PER Verified 04/26/20 18:54 PT, CAN TOLERATE VICODIN Opioids - Morphine Analogues Allergy Verified 04/26/20 18:54 Home Medications Home Medications Medication Instructions Recorded Confirmed Type aspirin 81 mg tablet,delayed 81 mg PO DAILY 06/27/19 04/26/20 History release gabapentin 100 mg tablet 200 mg PO TID tab 06/27/19 04/26/20 History glucos sul [id number] 2 cap PO DAILY 06/27/19 04/26/20 History lisinopril 20 mg tablet 20 mg PO BID tab 06/27/19 04/26/20 History potassium chloride 10 mEq 20 meq PO BID cap 06/27/19 04/26/20 History capsule,extended release hydrochlorothiazide 25 mg tablet 25 mg PO DAILY #90 tab 06/28/19 04/26/20 Rx carvedilol 25 mg tablet 25 mg PO BID #180 tab 07/02/19 04/26/20 Rx atorvastatin 40 mg tablet 40 mg PO QPM #90 tab 02/01/20 04/26/20 Rx levothyroxine 137 mcg tablet 137 mcg PO DAILY #90 tab 04/07/20 04/26/20 Rx acetaminophen [Tylenol Extra 500 mg PO Q6H PRN 04/26/20 04/26/20 History Strength] Past Med/Surg History Medical History Actinic keratosis BCC (basal cell carcinoma), abdomen Dysplastic nevus Hx of papillary thyroid carcinoma Hx of supraventricular tachycardia Surgical History S/P cardiac cath S/P surgery on nasal septum S/P thyroid surgery Social History Smoking Status: Never smoker Do You Dip or Chew Tobacco: No; Hx Alcohol Use: No Hx Substance Use: No Preferred Language: Namibian Communication Ability: Effective Functional Mental Disability Teacher Required: No Beliefs That Will Affect Care: None Current Living Situation: Spouse Other Information That Helps Us Care for You: No Feels Safe at Home: Yes Safety Concerns: Feels Safe At This Time Review of Systems Review of Systems: The patient denies chest pain, palpitations, shortness of breath, dyspnea on exertion, cough, lower extremity swelling, sore throat, fevers, chills, sweats, nausea, vomiting, diarrhea , constipation, abdominal pa in, pelvic pain, blood in urine or stool, dysuria, lightheadedness, dizziness, headache, memory loss, loss of consciousness, rash, abnormal bruising or bleeding, imbalance, focal or generalized weakness, numbness or tingling in arms or legs, generalized arthralgias or myalgias, back or neck pain, or night sweats. The review of systems is otherwise negative other than for that already noted above, and at least 10 systems have been reviewed. Physical Exam Physical Exam: The patient is awake, alert and oriented 3, well developed and well nourished, normocephalic and atraumatic, lying in bed and in no acute distress. HEENT--PERRL, EOMI, mucous membranes and oropharynx mildly dry. Neck--supple. No JVD. No bruits. Thyroid normal, trachea midline, no adenopathy. Heart--normal S1 and S2. No murmurs, rubs or gallops. Lungs--clear bilaterally, no respiratory distress, no accessory muscle use. Abdomen--normal bowel sounds and soft. Nontender. Nondistended. Extremities--no cyanosis or clubbing. No edema. Dermatologic--normal skin turgor, normal color, no abnormal lymph nodes, no rash. Neurologic--cranial nerves II through XII grossly intact. Rheumatologic--normal range of motion. Psychiatric--normal affect. Results & Data Results & Data ([facility]) Vital Signs (Past 12 Hours) Vital Signs Temp Pulse Pulse Resp BP BP Pulse Ox 04/26/20 20:20 86 21 95 04/26/20 20:10 86 18 95 04/26/20 20:01 86 95 04/26/20 20:00 87 106/73 95 04/26/20 19:50 86 21 94 04/26/20 19:40 87 20 95 04/26/20 19:31 87 21 94 04/26/20 19:30 87 23 108/73 94 04/26/20 19:20 88 23 95 04/26/20 19:10 88 23 94 04/26/20 19:01 88 20 94 04/26/20 19:00 88 107/73 94 04/26/20 18:50 88 94 04/26/20 18:40 90 18 94 04/26/20 18:18 18 91 04/26/20 18:14 73 18 99/64 L 92 04/26/20 17:25 100.0 F H 96 H 20 82/54 L 92 Laboratory Results Laboratory Results WBC 5.70 K/uL (4.8-10.8) 04/26/20 18:06 RBC 5.17 M/uL (4.7-6.1) 04/26/20 18:06 Hgb 16.4 g/dL (14.0-18.0) 04/26/20 18:06 Hct 46.4 % (42-52) 04/26/20 18:06 MCV 89.7 fL (80-100) 04/26/20 18:06 MCH 31.7 pg (25-34) 04/26/20 18:06 MCHC 35.3 g/dL (32-36) 04/26/20 18:06 RDW Std Deviation 44.0 fL (36.4-46.3) 04/26/20 18:06 RDW Coeff of [place]les 13.3 % (11.5-14.5) 04/26/20 18:06 Plt Count 80 K/uL (130-400) L 04/26/20 18:06 MPV 9.7 fL (7.4-10.4) 04/26/20 18:06 Immature Gran % (Auto) 0.4 % 04/26/20 18:06 Neut % (Auto) 79.6 % 04/26/20 18:06 Lymph % (Auto) 13.0 % 04/26/20 18:06 Love % (Auto) 6.8 % 04/26/20 18:06 Eos % (Auto) 0.0 % 04/26/20 18:06 Baso % (Auto) 0.2 % 04/26/20 18:06 Neut # (Auto) 4.54 K/uL (1.4-6.5) 04/26/20 18:06 Lymph # (Auto) 0.74 K/uL (1.2-3.4) L 04/26/20 18:06 Love # (Auto) 0.39 K/uL (0.11-0.59) 04/26/20 18:06 Eos # (Auto) 0.00 K/uL (0-0.5) 04/26/20 18:06 Baso # (Auto) 0.01 K/uL (0-0.2) 04/26/20 18:06 Immature Gran # (Auto) 0.02 K/uL (0.00-0.02) 04/26/20 18:06 Platelet Estimate Decreased (Normal) L 04/26/20 18:06 PT 12.0 Seconds (9.0-12.0) 04/26/20 18:06 INR 1.1 (0.9-1.1) 04/26/20 18:06 APTT 29.6 Seconds (21.0-31.0) 04/26/20 18:06 PTT Ratio 1.1 04/26/20 18:06 Sodium 135 mmol/L (136-145) L 04/26/20 18:06 Potassium 4.0 mmol/L (3.5-5.1) 04/26/20 18:06 Chloride 102 mmol/L (98-107) 04/26/20 18:06 Carbon Dioxide 25 mmol/L (21-32) 04/26/20 18:06 Anion Gap 8.0 (3-11) 04/26/20 18:06 BUN 26 mg/dl (7-18) H 04/26/20 18:06 Creatinine 2.30 mg/dl (0.6-1.4) H 04/26/20 18:06 Est Cr Clr Drug Dosing 44.0 ml/min 04/26/20 18:06 Est GFR ( Amer) 32.4 04/26/20 18:06 Est GFR (Non-Af Amer) 27.9 04/26/20 18:06 BUN/Creatinine Ratio 11.3 (10-20) 04/26/20 18:06 Glucose 134 mg/dl (70-99) H 04/26/20 18:06 Lactate 1.0 mmol/L (0.4-2.0) 04/26/20 20:24 Calcium 8.2 mg/dl (8.5-10.1) L 04/26/20 18:06 Magnesium 2.2 mg/dl (1.8-2.4) 04/26/20 18:06 Total Bilirubin 1.2 mg/dl (0.2-1) H 04/26/20 18:06 AST 25 U/L (15-37) 04/26/20 18:06 ALT 30 U/L (12-78) 04/26/20 18:06 Alkaline Phosphatase 68 U/L (45-117) 04/26/20 18:06 Troponin I < 0.015 ng/ml (0-0.045) 04/26/20 23:03 Total Protein 7.0 gm/dl (6.4-8.2) 04/26/20 18:06 Albumin 3.5 gm/dl (3.4-5.0) 04/26/20 18:06 Globulin 3.5 gm/dl (2.5-4.0) 04/26/20 18:06 Albumin/Globulin Ratio 1.0 (0.9-2) 04/26/20 18:06 Procalcitonin 0.99 ng/ml (0-0.5) H 04/26/20 18:06 Urine Color Yellow 04/26/20 21:54 Urine Appearance Clear (Clear) 04/26/20 21:54 Urine pH 6.0 (4.5-7.5) 04/26/20 21:54 Ur Specific [place] 1.025 (1.000-1.030) 04/26/20 21:54 Urine Protein 1+ (Negative) H 04/26/20 21:54 Urine Glucose (UA) Negative (Negative) 04/26/20 21:54 Urine Ketones Negative (Negative) 04/26/20 21:54 Urine Blood 2+ (Negative) H 04/26/20 21:54 Urine Nitrite Negative (Negative) 04/26/20 21:54 Urine Bilirubin Negative (Negative) 04/26/20 21:54 Urine Urobilinogen Negative (Negative) 04/26/20 21:54 Ur Leukocyte Esterase Negative (Negative) 04/26/20 21:54 Urine RBC 5-10 /hpf (0-4) H 04/26/20 21:54 Urine WBC 0-5 /hpf (0-5) 04/26/20 21:54 Ur Epithelial Cells 5-10 /lpf (0-5) H 04/26/20 21:54 Urine Bacteria Negative (Negative) 04/26/20 21:54 Hyaline Casts 5-10 /lpf (0-5) H 04/26/20 21:54 Urine Mucus Present (None Prsent) A 04/26/20 21:54 Lyme Disease IgG Ab Negative (Negative) 04/26/20 18:06 Lyme Disease IgM Ab Negative (Negative) 04/26/20 18:06 COVID-19 Eval Order Covid19 Done at [facility] 04/26/20 18:05 COVID-19 PCR NEGATIVE (Negative) 04/26/20 18:05 Diagnostic Findings [place], [place] [phone] XRay Report Patient: CLARITA LLAMAS Date: 04/26/20 MR#: [id number]: [address] Acct ID:[id number]: Date: [address] [place] [address] Zip: [place] [address] Age: 70Location: ED Sex: M Room/Bed: Att Phy:Diagnosis: MUSCLE ACHES, CHILLS, SWEATING, DIARRHEA Aminta Phy: Jose Palacios M.D.Service Date: 04/26/20 Fam Phy:Interpreting Phy: Julián Awad MD Admit Phy: Ordering Phy: Krunal Oshea MD cc: ~ XR chest 1V portable CLINICAL HISTORY: SEPSIS COMPARISON STUDY: 11/14/2017 FINDINGS: The heart is enlarged. There is no focal pulmonary consolidation. There is slight interstitial prominence similar to the prior study. There is no overt failure. There are no significant pleural effusions[ IMPRESSION: Persistent cardiomegaly. No evidence of focal pulmonary consolidation ACT 112: Negative or not required by law. Electronically signed by: Julián Awad M.D. 04/26/2020 6:45 PM Dictated: 04/26/201843 Transcribed: 04/26/201843 Code Status & VTE Plan Code Status Full code VTE Prophylaxis Plan VTE Prophylaxis will be ordered: Yes PG Care Time/CCT Total # of Minutes Spent Total Time Spent with Patient: Total time spent is greater than 50% in coordination of care (as documented) at patient's floor/unit and/or counseling patient: Coding Level of Care Code 57667 Initial Inpt Care Lvl 3 Diagnoses Febrile illness R50.9 Weakness generalized R53.1 Thrombocytopenia D69.6 LA (acute kidney injury) N17.9 CAD (coronary artery disease) I25.10 Premature ventricular contractions I49.3 HTN (hypertension) I10 HLD (hyperlipidemia) E78.5 Hypothyroidism, postablative E89.0
[2020-04-26 22:08] LABS: Appearance Urine Clear (Clear); Bilirubin Urine Negative (Negative); Blood Urine 2+ (Negative); Color Urine Yellow; Glucose Urine UA Negative (Negative); Ketones Urine Negative (Negative); Leukocyte Esterase Urine Negative (Negative); Nitrite Urine Negative (Negative); Protein Urine 1+ (Negative); Specific Gravity Urine 1.025 (1.000-1.030); Urobilinogen Urine Negative (Negative)
[2020-04-26 22:34] LABS: Mucus Urine Present (None Prsent)
[2020-04-26 22:37] LABS: Bacteria Urine Negative (Negative); WBC Urine 0-5 /hpf (0-5)
[2020-04-26] MEDS ORDERED: ALUMINUM/MAGNESIUM SUSP 30 ML UDC PO PRN (22:41)
[2020-04-26] MEDS ORDERED: ACETAMINOPHEN 500 MG TAB PO PRN (22:41)
[2020-04-26] MEDS ORDERED: ACETAMINOPHEN 325 MG TAB PO PRN (22:41)
[2020-04-26] MEDS ORDERED: MAGNESIUM HYDROXIDE SUSP 30 ML UDC PO PRN (22:41)
[2020-04-26] MEDS: GABAPENTIN 100 MG CAP PO SCH (22:54)
[2020-04-26] MEDS: POTASSIUM CHLORIDE 20 MEQ TABCR PO SCH (22:54)
[2020-04-26] MEDS: ATORVASTATIN 40 MG TAB PO SCH (22:54)
[2020-04-26] MEDS: carvediloL 25 MG TAB PO SCH (22:54)
[2020-04-26] MEDS: ENOXAPARIN INJ 30 MG/0.3 ML SYR SQ SCH (23:26)
[2020-04-26] MEDS: ONDANSETRON INJ 2 MG/ML 2 ML VIAL IV PRN (23:26)
[2020-04-26] MEDS: cefTRIAXone SODIUM 2,000 MG in DEXTROSE 5% 50 ML IV SCH (23:26)
[2020-04-27] MEDS: DOXYCYCLINE HYCLATE 100 MG in DEXTROSE 5% 100 ML IV SCH ×3 (00:20→23:55)
[2020-04-27] MEDS: SODIUM CHLORIDE 0.9% 1000ML 1,000 ML IV SCH ×2 (02:30→15:38)
[2020-04-27] MEDS: LEVOTHYROXINE SODIUM 137 MCG TABLET PO SCH (04:33)
[2020-04-27 07:20] LABS: Hematocrit (blood only) 43.5 % (42-52); Hemoglobin 15.4 g/dL (14.0-18.0); Mean Corpuscular Hemoglobin 31.4 pg (25-34); Mean Corpuscular Hgb Conc 35.4 g/dL (32-36); Mean Corpuscular Volume 88.6 fL (80-100); RDW Coefficient of Variation 13.5 % (11.5-14.5); RDW Standard Deviation 44.1 fL (36.4-46.3); Red Blood Count 4.91 M/uL (4.7-6.1); White Blood Count 4.44 K/uL (4.8-10.8)
[2020-04-27 07:25] LABS: Mean Platelet Volume 10.2 fL (7.4-10.4); Platelet Count 64 K/uL (130-400)
[2020-04-27 07:30] LABS: INR 1.2 (0.9-1.1); Partial Thromboplastin Ratio 1.2; Partial Thromboplastin Time 33.1 Seconds (21.0-31.0); Prothrombin Time 12.1 Seconds (9.0-12.0)
--- NOTE | 2020-04-27 07:41 | Hospitalist Progress Note ---
Date of Service April 27, 2020 Assessment & Plan (1) Febrile illness: Febrile illness/generalized weakness-peripheral smear shows inclusion bodies within the red cells consistent with possible tickborne illness infection such as anaplasmosis, this would fit with his leukopenia and thrombocytopenia. Confirmatory testing is sent. Patient continues on ceftriaxone and doxycycline Urinalysis and urine culture sensitivity pending, will follow Patient reports a known PSA of 6.6. (2) Weakness generalized: See above (3) Thrombocytopenia: Platelets decreased further from admission We will continue to follow If platelets continue to drop tomorrow, could consider a trial of steroids for ITP, and depending upon interpretation of other studies. (4) LA (acute kidney injury): Creatinine 2.30 upon admission, great improvement after short bit of hydration creatinine now 1.57 Continue holding lisinopril, HCTZ and potassium. Continue IV fluid after the next liter if renal function is stable on 09/28 reinstitute MATT inhibitor (5) CAD (coronary artery disease): CAD/hypertension/PVCs- Negative troponin x3 Continue aspirin 81 mg daily, and carvedilol 25 mg p.o. twice daily. Hold lisinopril 20 mg p.o. twice daily, HCTZ 25 mg p.o. daily and potassium chloride 20 mEq p.o. twice daily for now due to acute kidney injury (6) Premature ventricular contractions: Patient with history of nonsustained V. tach and PVCs. Patient was noted to be in asymptomatic bigeminy intermittently while in the ED. (7) HTN (hypertension): See above (8) HLD (hyperlipidemia): Continue atorvastatin 40 mg in the evening (9) Hypothyroidism, postablative: Continue levothyroxine 137 mcg daily Admission and Anticipated Discharge Date Admission Date: April 26, 2020 Subjective Patient feels improved still having chills without fever was informed of this likely anaplasmosis blood smear result his is on the cell phone which she is also informed of this result. Still will await the culture of his urine as he was having some urinary frequency prior to presentation. 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 and likely did have exposure to risk factors for tickborne illness over the last few weeks particularly he feels he may have had a tick bite on his thigh within the last 1 week Review of Systems Review of Systems: Mild distress and fatigue feeling chills but no fever no headache, blurry or double vision no speech or swallowing issues no chest pain, pressure or palpitations no shortness of breath, cough or wheezes no abdominal pain, nausea or vomiting, diarrhea or constipation no dysuria, hematuria or frequency no focal joint pain or swelling no back pain, CVA tenderness or radicular pain no bruising, bleeding or rashes no focal signs of weakness or numbness or altered sensation no complaints or anxiety or depression. Physical Exam Physical Exam: The patient appeared well nourished and normally developed. Vital signs as documented. Head exam is normocephalic atraumatic no scleral icterus Neck is without JVD, thyromegaly, or carotid bruits. Lungs are clear to auscultation, no focal loss of breath sounds Cardiac exam, Rhythm is regular.. No murmurs, rubs or gallops. Abdominal exam reveals normal bowel sounds, soft non tender, no masses Extremities are nonedematous and both pedal pulses are normal. Neurologic exam is alert and oriented, no focal loss of strength or sensation Skin is minor erythema likely remnant of a previous insect bite on his leg does not look cellulitic at this time Psychologically is without concerns for anxiety or depression Results & Data Results & Data ([facility]) Vital Signs (Past 12 Hours) Vital Signs Temp Pulse Pulse Resp BP BP Pulse Ox 04/27/20 07:15 99.0 F 63 19 111/68 94 04/27/20 03:46 100.2 F H 82 18 168/95 H 94 04/26/20 22:54 98.8 F 93 H 18 158/92 H 96 04/26/20 22:00 87 24 177/111 H 95 04/26/20 21:53 64 95 04/26/20 21:40 84 19 96 04/26/20 21:31 85 23 95 04/26/20 21:30 85 23 133/90 96 04/26/20 21:20 85 24 96 04/26/20 21:10 85 24 96 04/26/20 21:01 84 22 04/26/20 21:00 85 128/89 04/26/20 20:50 85 20 04/26/20 20:40 84 22 04/26/20 20:31 85 21 04/26/20 20:30 85 23 130/81 04/26/20 20:20 86 21 95 04/26/20 20:10 86 18 95 04/26/20 20:01 86 95 04/26/20 20:00 87 106/73 95 04/26/20 19:50 86 21 94 04/26/20 19:40 87 20 95 PG Care Time/CCT Total # of Minutes Spent Total Time Spent with Patient: Total time spent is greater than 50% in coordination of care (as documented) at patient's floor/unit and/or counseling patient: Coding Level of Care Code 53097 Subseq Hosp Care Lvl 3 Diagnoses Febrile illness R50.9 Weakness generalized R53.1 Thrombocytopenia D69.6 LA (acute kidney injury) N17.9 CAD (coronary artery disease) I25.10 Premature ventricular contractions I49.3 HTN (hypertension) I10 HLD (hyperlipidemia) E78.5 Hypothyroidism, postablative E89.0
[2020-04-27 07:44] LABS: BUN Creatinine Ratio 13.8 (10-20); Calcium 7.5 mg/dl (8.5-10.1); Creatinine Clr Calc Pharmacy 64.4 ml/min; Est GFR (African American) 51.4; Est GFR (Non-African American) 44.3; Magnesium 1.8 mg/dl (1.8-2.4); Potassium 3.3 mmol/L (3.5-5.1)
[2020-04-27 07:57] LABS: Albumin Globulin Ratio 0.9 (0.9-2); Bilirubin,Total 0.8 mg/dl (0.2-1); Globulin 3.2 gm/dl (2.5-4.0); Total Protein 6.2 gm/dl (6.4-8.2)
[2020-04-27] MEDS: GABAPENTIN 100 MG CAP PO SCH ×3 (08:31→20:00)
[2020-04-27] MEDS: POTASSIUM CHLORIDE 20 MEQ TABCR PO SCH ×2 (08:32→19:41)
[2020-04-27] MEDS: carvediloL 25 MG TAB PO SCH ×2 (08:32→19:41)
[2020-04-27] MEDS: ASPIRIN 81 MG ECTAB PO SCH (08:33)
[2020-04-27] MEDS ORDERED: [UNRECOGNIZED DRUG - OTHER] PO SCH (09:00)
[2020-04-27] MEDS ORDERED: GLUCOS SUL PO SCH (09:00)
[2020-04-27 09:50] LABS: Basophils # (auto) 0.01 K/uL (0-0.2); Basophils % (auto) 0.2 %; Immature Granulocytes # (auto) 0.02 K/uL (0.00-0.02); Immature Granulocytes % (auto) 0.5 %; Lymphocytes % (auto) 15.8 %; Monocytes # (auto) 0.41 K/uL (0.11-0.59); Monocytes % (auto) 9.2 %; Neutrophils % (auto) 74.3 %
[2020-04-27] MEDS ORDERED: COUGH DROP (SUGAR FREE) LOZ 24 LOZ/1 BOX BUCCAL ONE (14:39)
[2020-04-27] MEDS ORDERED: COUGH DROP (SUGAR FREE) LOZ 24 LOZ/1 BOX BUCCAL STA (14:40)
[2020-04-27] MEDS ORDERED: HydrALAZINE HCL 20 MG/ML VIAL IV PRN (15:44)
[2020-04-27] MEDS: ONDANSETRON INJ 2 MG/ML 2 ML VIAL IV PRN (16:11)
[2020-04-27] MEDS ORDERED: LORazepam 0.5 MG TAB PO PRN (18:43)
[2020-04-27] MEDS ORDERED: MELATONIN 3 MG TAB PO PRN (18:43)
[2020-04-27] MEDS: ATORVASTATIN 40 MG TAB PO SCH (19:42)
--- NOTE | 2020-04-27 22:56 | Electrocardiogram Report ---
Test Reason : Blood Pressure : / mmHG Vent. Rate : 073 BPM Atrial Rate : 073 BPM P-R Int : 274 ms QRS Dur : 120 ms QT Int : 408 ms P-R-T Axes : 033 006 015 degrees QTc Int : 449 ms Sinus rhythm with 1st degree A-V block Non-specific intra-ventricular conduction delay Borderline ECG When compared with ECG of 15-NOV-2017 07:16, Premature ventricular complexes are no longer Present QT has shortened Confirmed by Ancelmo Adan ([id number]) on 04/27/2020 10:56:25 PM Referred By: REFERRED SELF Confirmed By:Ancelmo Adan
[2020-04-27] MEDS: ENOXAPARIN INJ 30 MG/0.3 ML SYR SQ SCH (23:07)
[2020-04-27] MEDS: cefTRIAXone SODIUM 2,000 MG in DEXTROSE 5% 50 ML IV SCH (23:08)
[2020-04-28 06:02] LABS: Hematocrit (blood only) 41.9 % (42-52); Mean Corpuscular Hemoglobin 31.8 pg (25-34); Mean Corpuscular Hgb Conc 35.8 g/dL (32-36); RDW Coefficient of Variation 13.4 % (11.5-14.5); RDW Standard Deviation 44.1 fL (36.4-46.3); Red Blood Count 4.71 M/uL (4.7-6.1); White Blood Count 4.79 K/uL (4.8-10.8)
[2020-04-28] MEDS: LEVOTHYROXINE SODIUM 137 MCG TABLET PO SCH (06:06)
[2020-04-28 06:09] LABS: Platelet Count 55 K/uL (130-400)
[2020-04-28 06:14] LABS: INR 1.1 (0.9-1.1); Partial Thromboplastin Ratio 1.1; Partial Thromboplastin Time 31.4 Seconds (21.0-31.0); Prothrombin Time 11.4 Seconds (9.0-12.0)
[2020-04-28 06:43] LABS: Albumin Level 2.9 gm/dl (3.4-5.0); BUN Creatinine Ratio 14.4 (10-20); Calcium 7.7 mg/dl (8.5-10.1); Creatinine Clr Calc Pharmacy 74.6 ml/min; Est GFR (African American) 61.1; Est GFR (Non-African American) 52.7; Potassium 3.5 mmol/L (3.5-5.1)
[2020-04-28 06:46] LABS: ANC (manual) 2.04 K/uL (1.4-6.5); Albumin Globulin Ratio 0.9 (0.9-2); Basophils # (manual) 0.04 K/uL (0-0.2); Basophils % (manual) 0.9 %; Bilirubin,Total 0.9 mg/dl (0.2-1); Eosinophils # (manual) 0.04 K/uL (0-0.5); Eosinophils % (manual) 0.9 %; Giant Platelets 1+; Globulin 3.1 gm/dl (2.5-4.0); Large Granular Lymph # (manua 1.67 K/uL; Large Granular Lymph % (manual) 34.8 %; Lymphocytes # (manual) 0.34 K/uL (1.2-3.4); Monocytes # (manual) 0.67 K/uL (0.11-0.59); Monocytes % (manual) 13.9 %; Neutrophils # (manual) 2.04 K/uL (1.4-6.5); Neutrophils % (manual) 42.5 %
[2020-04-28] MEDS: ASPIRIN 81 MG ECTAB PO SCH (08:44)
[2020-04-28] MEDS: carvediloL 25 MG TAB PO SCH (08:44)
[2020-04-28] MEDS: GABAPENTIN 100 MG CAP PO SCH ×2 (08:44→14:25)
[2020-04-28] MEDS: POTASSIUM CHLORIDE 20 MEQ TABCR PO SCH (08:44)
[2020-04-28] MEDS: DOXYCYCLINE HYCLATE 100 MG in DEXTROSE 5% 100 ML IV SCH (12:09)
--- NOTE | 2020-04-28 16:11 | Discharge Summary ---
Date of Service April 28, 2020 Admission HPI Per Admitting Provider The patient is a 70-year-old male with a past medical history including ASCVD, carotid artery plaque, first-degree AV block, post ablative hypothyroidism, idiopathic polyneuropathy, DJD of left hip, nonsustained V. tach, PVCs, sensorineural hearing loss of both ears, hypertension, CAD, hyperlipidemia and obstructive sleep apnea. He reports to the ED with complaint of generalized weakness and fatigue. He does note increased frequency of urination over the past 48 hours, without hematuria or dysuria. He usually is very physically active, swimming at the [facility] on a regular basis, and out walking as well. He does report decreased oral intake over the past 24 hours due to decreased appetite. Principal Diagnosis anaplasmosis infection Discharge Exam The patient appeared well nourished and normally developed. he is very fatigued Vital signs as documented. Head exam is normocephalic atraumatic no scleral icterus Neck is without JVD, thyromegaly, or carotid bruits. Lungs are clear to auscultation, no focal loss of breath sounds Cardiac exam, Rhythm is regular.. No murmurs, rubs or gallops. Abdominal exam reveals normal bowel sounds, soft non tender, no masses Extremities are nonedematous and both pedal pulses are normal. Neurologic exam is alert and oriented, no focal loss of strength or sensation Skin is without bruises or rashes Psychologically is without concerns for anxiety or depression Discharge Data Allergies Allergy/AdvReac Type Severity Reaction Status Date / Time morphine Allergy Unknown RASH, PER Verified 04/26/20 18:54 PT, CAN TOLERATE VICODIN Opioids - Morphine Analogues Allergy Verified 04/26/20 18:54 Consultations 04/26/20 19:35 ED Decision to Admit Stat 04/26/20 22:41 Consult Case Management - Discharge Planning Routine Hospital Course (1) Febrile illness: Febrile illness/generalized weakness-peripheral smear shows inclusion bodies within the red cells consistent with possible tickborne illness infection such as anaplasmosis, this would fit with his leukopenia and thrombocytopenia. Confirmatory testing is sent. Patient will be discharged on doxycycline Urinalysis and urine culture sensitivity pending,at the time of discharge Patient reports a known PSA of 6.6. (2) Weakness generalized: See above (3) Thrombocytopenia: Platelets decreased secondary to anaplasmosis infection doubt ITP (4) LA (acute kidney injury): Creatinine 2.30 upon admission, great improvement after short bit of hydration creatinine now 1.36 resume medications at time of discharge (5) CAD (coronary artery disease): CAD/hypertension/PVCs- Negative troponin x3 Continue aspirin 81 mg daily, and carvedilol 25 mg p.o. twice daily. resume home meds (6) Premature ventricular contractions: Patient with history of nonsustained V. tach and PVCs. Patient was noted to be in asymptomatic bigeminy intermittently while in the ED. since resolved (7) HTN (hypertension): See above (8) HLD (hyperlipidemia): Continue atorvastatin 40 mg in the evening (9) Hypothyroidism, postablative: Continue levothyroxine 137 mcg daily Total Time Total Time Spent Total Time Spent (In Minutes): It required greater than 30 minutes to prepare this patient for discharge Discharge Plan Discharge Items Patient Disposition: Home - Self-Care Reason For Visit: LA,THROMOBYCTOPENIA,FEBRILE ILLNESS Discharge Diagnosis: anaplasmosis Activity: Per Instructions section Activity Comment: slowly resume activity Non-emergency contact: Primary Care Provider Call non-emergency contact if: you have any medication questions and your symptoms worsen Follow-up/Referrals: Jose Encarnacion MD [Primary Care Provider] - Diet: Regular Addtl Attending Provider Instructions: take all of your antibiotic,. slowly resume your exercise follow up with Dr gupta in one week Pending Studies at Discharge: Yes Studies:: send out anaplasmosis testing Stand-Alone Forms: My [facility] [place], Smoking Cessation Medications and DC Order Prescriptions: New doxycycline hyclate 100 mg tablet 100 mg PO BID 13 Days Qty: 26 RF: 0 Continued aspirin [Adult Low Dose Aspirin] 81 mg tablet,delayed release (DR/EC) 81 mg PO DAILY RF: 0 gabapentin 100 mg tablet 200 mg PO TID RF: [address] [id number] 2 cap PO DAILY RF: 0 lisinopril 20 mg tablet 20 mg PO BID RF: 0 potassium chloride 10 mEq capsule, extended release 20 meq PO BID RF: 0 hydrochlorothiazide 25 mg tablet 25 mg PO DAILY Qty: 90 RF: 3 carvedilol 25 mg tablet 25 mg PO BID Qty: 180 RF: 3 atorvastatin 40 mg tablet 40 mg PO QPM Qty: 90 RF: 3 levothyroxine 137 mcg tablet 137 mcg PO DAILY Qty: 90 RF: 3 acetaminophen [Tylenol Extra Strength] 500 mg Tablet 500 mg PO Q6H PRN (Reason: Fever Or Pain) RF: 0 Discharge Orders: Discharge Order (Routine); Ordered 04/28/20 Ordered By: Eric London Admission Data Admit Date/Time: 04/26/20 21:12 Attending Provider: Eric London Admit Provider: Ruperto Clinton Primary Care Provider: Jose Encarnacion Other Providers: Ruperto Clinton Coding Level of Care Code D/C Day Management >30 mins Diagnoses Febrile illness R50.9 Weakness generalized R53.1 Thrombocytopenia D69.6 LA (acute kidney injury) N17.9 CAD (coronary artery disease) I25.10 Premature ventricular contractions I49.3 HTN (hypertension) I10 HLD (hyperlipidemia) E78.5 Hypothyroidism, postablative E89.0
[2020-05-02 14:23] LABS: Ehrlichia chaff DNA Bld Not Detected (Not Detected)
== END 2020-04-28 16:59 | disposition home or self-care (01) | DRG 868 ==
LOC: ED 17:20 → SUATTDRO 21:12 → 2S 21:12